=== PATIENT | female | born 1940 | race African-American/Black ===

== ENCOUNTER 2018-01-22 22:14 | Inpatient (IN) | payer OTHER ==
[2018-01-22 22:23] VITALS: BMI 31.6
[2018-01-22] MEDS ORDERED: ALBUTEROL SO4 2.5/IPRATROPIUM 0.5 INH SOL 3 ML VIAL.NEB. NEB STA ×2 (23:19→23:43)
--- NOTE | 2018-01-22 23:19 | PDOC ---
History of Present Illness - General History Source: Patient Exam Limitations: No Limitations - History of Present Illness Initial Comments: 01/22/18 23:46 The patient is a 77 year old female with a significant PMH of cardiac disorder, diabetes, HTN, and seizures who presents to the emergency department with shortness of breath over the past few weeks which worsened approximately 4 days ago and cough. The patient reports she has had intermittent shortness of breath for several weeks which became worse and more frequent since Sunday. She reports waking up today very uncomfortable due to her shortness of breath, with associated dry cough. The patient denies any sick contacts. She denies fevers and chills. The patient denies chest pain, headache and dizziness. Denies fever, chills, nausea, vomit, diarrhea and constipation. Denies dysuria, frequency, urgency and hematuria. Allergies: NKA Past surgical history: None reported. Social history: No reported cigarette, alcohol, or drug use. PCP: None reported. <Dejon Dunbar - Last Filed: 01/23/18 01:19> - General History Source: Patient <Bolivar Christensen - Last Filed: 01/29/18 19:29> - General Chief Complaint: Shortness of Breath Stated Complaint: CHEST PAIN Time Seen by Provider: 01/22/18 23:19 Past History <Dejon Dunbar - Last Filed: 01/23/18 01:19> - Past Medical History Cardiac Disorders: Yes COPD: No Diabetes: Yes HTN: Yes Seizures: Yes - Suicide/Smoking/Psychosocial Hx Smoking History: Never smoked Have you smoked in the past 12 months: No Information on smoking cessation initiated: No Hx Alcohol Use: No Drug/Substance Use Hx: No Substance Use Type: None <Bolivar Christensen - Last Filed: 01/29/18 19:29> - Past Medical History Allergies/Adverse Reactions: Allergies Allergy/AdvReac Type Severity Reaction Status Date / Time amlodipine [From [facility]] Allergy Severe Swelling Verified 01/23/18 00:19 Home Medications: Ambulatory Orders Cholecalciferol (Vitamin D3) [Vitamin D -] 200 unit PO DAILY 01/22/18 Albuterol 0.083% Nebulizer Meg [Ventolin 0.083% Nebulizer Soln -] 1 amp NEB Q1H PRN amp 01/26/18 Albuterol 2.5/Ipratropium 0.5 [Duoneb -] 1 amp NEB RQID amp 01/26/18 Chlorhexidine Gluconate [Hibiclens For Decolonization -] 1 applic TP HS bottle 01/26/18 Dexamethasone Injection [Decadron Injection -] 10 mg IVPUSH Q8H-IV vial Enoxaparin [Lovenox -] 40 mg SQ DAILY disp.syrin 01/26/18 Guaifenesin/Dextromethorphan [Guaifenesin Dm Syrup] 10 ml PO Q4H PRN cup Insulin Sliding Scale [Novolog Vial Sliding Scale -] 1 vial SQ ACHS units 01/26 Levothyroxine [Synthroid -] 50 mcg PO DAILY@0700 tablet 01/26/18 Mupirocin Ointment [Bactroban Ointment (For Decolonization) -] 1 applic NS BID applic 01/26/18 hydrALAZINE INJECTION [Apresoline Injection -] 10 mg IVPUSH Q6H PRN vial Review of Systems - Review of Systems Able to Perform ROS?: Yes Comments:: 01/22/18 23:46 CONSTITUTIONAL: Absent: fever, chills, diaphoresis, generalized weakness, malaise, loss of appetite HEENT: Absent: rhinorrhea, nasal congestion, throat pain, throat swelling, difficulty swallowing, mouth swelling, ear pain, eye pain, visual Changes CARDIOVASCULAR: Absent: chest pain, syncope, palpitations, irregular heart rate, lightheadedness , peripheral edema RESPIRATORY: (+) Shortness of breath. (+) Cough. Absent: dyspnea with exertion, orthopnea, wheezing, stridor, hemoptysis GASTROINTESTINAL: Absent: abdominal pain, abdominal distension, nausea, vomiting, diarrhea, constipation, melena, hematochezia GENITOURINARY: Absent: dysuria, frequency, urgency, hesitancy, hematuria, flank pain, genital pain MUSCULOSKELETAL: Absent: myalgia, arthralgia, joint swelling SKIN: Absent: rash, itching, pallor HEMATOLOGIC/IMMUNOLOGIC: Absent: easy bleeding, easy bruising, lymphadenopathy, frequent infections ENDOCRINE: Absent: unexplained weight gain, unexplained weight loss, heat intolerance, cold intolerance NEUROLOGIC: Absent: headache, focal weakness or paresthesias, dizziness, unsteady gait, seizure, mental status changes, bladder or bowel incontinence PSYCHIATRIC: Absent: anxiety, depression, suicidal or homicidal ideation, hallucinations. <Dejon Dunbar - Last Filed: 01/23/18 01:19> *Physical Exam - Vital Signs Last Vital Signs Temp Pulse Resp BP Pulse Ox 99.4 F 89 25 H 171/102 96 01/22/18 22:19 01/22/18 22:19 01/22/18 22:19 01/22/18 22:19 01/22/18 22:19 - Physical Exam Comments: 01/22/18 23:47 GENERAL: Well developed, well nourished. Awake and alert. No acute distress. HEENT: Normocephalic, atraumatic. PERRLA, EOMI. No conjunctival pallor. Sclera are non- icteric. Moist mucous membranes. Oropharynx is clear. NECK: Supple. Full ROM. No JVD. Carotid pulses 2+ and symmetric, without bruits. No thyromegaly. No lymphadenopathy. CARDIOVASCULAR: Regular rate and rhythm. No murmurs, rubs, or gallops. Distal pulses are 2+ and symmetric. PULMONARY: (+) Bilateral wheezing. (+) Conversational dyspnea. No rales or rhonchi. ABDOMINAL: Soft. Non-tender. Non-distended. No rebound or guarding. No organomegaly. Normoactive bowel sounds. MUSCULOSKELETAL Normal range of motion at all joints. No bony deformities or tenderness. No CVA tenderness. EXTREMITIES: No cyanosis. No clubbing. No edema. No calf tenderness. SKIN: Warm and dry. Normal capillary refill. No rashes. No jaundice. NEUROLOGICAL: Alert, awake, appropriate. Cranial nerves 2-12 intact. No deficits to light touch and temperature in face, upper extremities and lower extremities. No motor deficits in the in face, upper extremities and lower extremities. Normoreflexic in the upper and lower extremities. Normal speech. Toes are downgoing bilaterally. Gait is normal without ataxia. PSYCHIATRIC: Cooperative. Good eye contact. Appropriate mood and affect. <Dejon Dunbar - Last Filed: 01/23/18 01:19> - Vital Signs Last Vital Signs Temp Pulse Resp BP Pulse Ox 99.4 F 89 25 H 171/102 96 01/22/18 22:19 01/22/18 22:19 01/22/18 22:19 01/22/18 22:19 01/22/18 22:19 <Bolivar Christensen - Last Filed: 01/29/18 19:29> Heart Score/ECG Review #1 01/23/18 01:19 EKG done at 22:29 Vent rate 89 bpm Normal sinus rhythm Nonspecific T wave abnormality Abnormal ECG <Dejon Dunbar - Last Filed: 01/23/18 01:19> ED Treatment Course - LABORATORY CBC & Chemistry Diagram: 01/22/18 23:30 01/22/18 23:30 - ADDITIONAL ORDERS Additional order review: 01/22/18 23:30 RBC 4.28 MCV 85.5 MCHC 33.9 RDW 13.3 MPV 10.1 Neutrophils % 63.4 Lymphocytes % 24.7 Monocytes % 8.0 Eosinophils % 3.3 Basophils % 0.6 - Medications Given in the ED: ED Medications Discontinued Medications Generic Name Dose Route Start Last Admin Trade Name Freq PRN Reason Stop Dose Admin Albuterol/Ipratropium 1 amp 01/22/18 23:19 01/22/18 23:39 Duoneb - NEB 01/22/18 23:20 1 amp ONCE STA Administration <Dejon Dunbar - Last Filed: 01/23/18 01:19> - LABORATORY CBC & Chemistry Diagram: 01/26/18 05:16 01/26/18 05:16 <Bolivar Christensen - Last Filed: 01/29/18 19:29> Medical Decision Making - Medical Decision Making 01/29/18 19:28 Dr. Christensen: The scribe's documentation has been prepared under my direction and personally reviewed by me in its entirery. I confirm that the note above accurately reflects all work, treatment, procedures, and medical decision making performed by Dr. Christensen: The scribe's documentation has been prepared under my direction and personally reviewed by me in its entirery. I confirm that the note above accurately reflects all work, treatment, procedures , and medical decision making performed by me. <Bolivar Christensen - Last Filed: 01/29/18 19:29> *DC/Admit/Observation/Transfer - Attestations Scribe Attestion: 01/22/18 23:47 Documentation prepared by Dejon Dunbar, acting as registered medical transcriptionist for Bolivar Christensen DO. <Dejon Dunbar - Last Filed: 01/23/18 01:19> - Discharge Dispostion Admit: Yes <Bolivar Christensen - Last Filed: 01/29/18 19:29> Diagnosis at time of Disposition: Thyroid mass, SOB (shortness of breath) - Discharge Dispostion Condition at time of disposition: Improved
[2018-01-22] MEDS ORDERED: ALBUTEROL SO4 2.5/IPRATROPIUM 0.5 INH SOL 3 ML VIAL.NEB. NEB ONE (23:25)
[2018-01-22] MEDS ORDERED: MAGNESIUM SULF 50% (8.12 MEQ/2 ML-1 GM VIAL) IVPB ONE (23:40)
[2018-01-22] MEDS ORDERED: methylPREDNISolone NA SUCC 125 MG/2 ML VIAL IVPB ONE (23:40)
[2018-01-22 23:42] LABS: BASO % 0.6 % (0-2.0); EOS % 3.3 % (0-4.5); HEMATOCRIT 36.6 % (32.4-45.2); HEMOGLOBIN 12.4 GM/dL (10.7-15.3); LYMPH % 24.7 % (8-40); MCHC 33.9 g/dl (32.0-36.0); MEAN CELL VOLUME 85.5 fl (80-96); MEAN PLT VOLUME 10.1 fl (7.5-11.1); NEUT % 63.4 % (42.8-82.8); PLATELET COUNT 187 K/MM3 (134-434); RBC 4.28 M/mm3 (3.60-5.2); RDW 13.3 % (11.6-15.6); WHITE BLOOD COUNT 10.6 K/mm3 (4.0-10.0)
[2018-01-22 23:54] LABS: PROTHROMBIN TIME (PATIENT) 11.3 SEC (9.7-13.0)
[2018-01-23 00:08] LABS: ALBUMIN 4.1 g/dl (3.4-5.0); ANION GAP 9 (8-16); BILIRUBIN,TOTAL 0.4 mg/dL (0.2-1.0); BLOOD UREA NITROGEN 18 mg/dL (7-18); CALCIUM 9.5 mg/dL (8.5-10.1); CHLORIDE 102 mmol/L (98-107); CO2 34 mmol/L (21-32); CREATININE 0.9 mg/dL (0.55-1.02); GLUCOSE,RANDOM 129 mg/dL (74-106); SGOT/AST 16 U/L (15-37); SGPT/ALT 17 U/L (12-78); SODIUM 145 mmol/L (136-145); TOT PROT 8.3 g/dl (6.4-8.2)
[2018-01-23 00:11] LABS: ALK PHOS 96 U/L (45-117); N-TERMINAL BNP 171.78 pg/ml (5-450)
[2018-01-23 00:15] LABS: MAGNESIUM 2.2 mg/dL (1.8-2.4); PHOSPHOROUS 3.7 mg/dL (2.5-4.9)
[2018-01-23] MEDS ORDERED: MAGNESIUM SULF 50% (8.12 MEQ/2 ML-1 GM VIAL) ONE (00:22)
[2018-01-23] MEDS ORDERED: ALBUTEROL SO4 2.5/IPRATROPIUM 0.5 INH SOL 3 ML VIAL.NEB. NEB ONE (00:22)
[2018-01-23] MEDS ORDERED: methylPREDNISolone NA SUCC 125 MG/2 ML VIAL ONE (00:22)
[2018-01-23 01:34] LABS: URINE APPEARANCE SLCLOUDY; URINE BILIRUBIN NEGATIVE (<2.0 mg/dL); URINE COLOR LTYELLOW; URINE GLUCOSE (UA) NEGATIVE (NEGATIVE); URINE KETONE 1+ (NEGATIVE); URINE NITRITE NEGATIVE (NEGATIVE); URINE UROBILINOGEN NEGATIVE mg/dL (0.2-1.0)
[2018-01-23 01:35] LABS: URINE LEUK ESTERASE 1+ (NEGATIVE); URINE PROTEIN 2+ (NEGATIVE)
[2018-01-23 01:40] LABS: EPI CELLS FEW /HPF (FEW)
--- NOTE | 2018-01-23 02:52 | PN ---
Teaching Attending Note Name of Resident: Aida Davis ATTENDING PHYSICIAN STATEMENT I saw and evaluated the patient. I reviewed the resident's note and discussed the case with the resident. I agree with the resident's findings and plan as documented. SUBJECTIVE: 77 yo M with Pmhx. of CAD, DM, HTN, Seizures who presents with shortness of breath. States Shortness of Breath started a few days ago. Notes she has been short of breath on and off for several months, but has increased in frequency since Sunday. Also states that she has had a non-productive cough. Denies any fevers, chills, weight loss. Does have a family hx. of thyriod issues. No chest pain or pressure. No N, V,D. No headaches or dizziness. OBJECTIVE: Physical: VS: Vital Signs Period Temp Pulse Resp BP Sys/Eduardo Pulse Ox Last 24 Hr 99.4 F 89 25 171/102 96 GEN: NAD, Stridor when speaking, able to speak full sentences, HEENT: NCAT, PERRL, Throat without erythema or exudates CARD: RRR S1, S2 RESP: Bilateral Expiratory Wheezing ABD: BSx4, NTD to palpation, Keloid on abdomen EXT: - C/C/E Keloid on Back CBCD WBC 10.6 K/mm3 (4.0-10.0) H 01/22/18 23:30 RBC 4.28 M/mm3 (3.60-5.2) 01/22/18 23:30 Hgb 12.4 GM/dL (10.7-15.3) 01/22/18 23:30 Hct 36.6 % (32.4-45.2) 01/22/18 23:30 MCV 85.5 fl (80-96) 01/22/18 23:30 MCHC 33.9 g/dl (32.0-36.0) 01/22/18 23:30 RDW 13.3 % (11.6-15.6) 01/22/18 23:30 Plt Count 187 K/MM3 (134-434) 01/22/18 23:30 MPV 10.1 fl (7.5-11.1) 01/22/18 23:30 CMP Sodium 145 mmol/L (136-145) 01/22/18 23:30 Potassium 4.0 mmol/L (3.5-5.1) 01/22/18 23:30 Chloride 102 mmol/L (98-107) 01/22/18 23:30 Carbon Dioxide 34 mmol/L (21-32) H 01/22/18 23:30 Anion Gap 9 (8-16) 01/22/18 23:30 BUN 18 mg/dL (7-18) 01/22/18 23:30 Creatinine 0.9 mg/dL (0.55-1.02) 01/22/18 23:30 Creat Clearance w eGFR > 60 (>60) 01/22/18 23:30 Random Glucose 129 mg/dL (74-106) H 01/22/18 23:30 Calcium 9.5 mg/dL (8.5-10.1) 01/22/18 23:30 Total Bilirubin 0.4 mg/dL (0.2-1.0) 01/22/18 23:30 AST 16 U/L (15-37) 01/22/18 23:30 ALT 17 U/L (12-78) 01/22/18 23:30 Alkaline Phosphatase 96 U/L (45-117) 01/22/18 23:30 Total Protein 8.3 g/dl (6.4-8.2) H 01/22/18 23:30 Albumin 4.1 g/dl (3.4-5.0) 01/22/18 23:30 CARDIAC ENZYMES Creatine Kinase 150 IU/L (26-192) 01/22/18 23:30 Troponin I < 0.02 ng/ml (0.00-0.05) 01/22/18 23:30 Vent rate 89 bpm Normal sinus rhythm Nonspecific T wave abnormality Abnormal ECG Ambulatory Orders Aspirin [Aspirin EC] 81 mg PO DAILY 01/22/18 Atenolol [Tenormin -] 100 mg PO DAILY 01/22/18 Cholecalciferol (Vitamin D3) [Vitamin D3 -] 200 unit PO DAILY 01/22/18 Hydrochlorothiazide [Hctz -] 25 mg PO DAILY 01/22/18 Levothyroxine [Synthroid -] 50 mcg PO DAILY 01/22/18 CT Chest: Right Substernal Goiter, 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 of CAD, DM, HTN, Keloids, Seizures who presents with shortness of breath, found to have a goiter 1.) Shortness of breath due to Substernal Goiter/Displaced Trachea - TSH, T3/T4 - Thyriod US - Flow-Volume - - ENT/Pulm. consult - Type & Screen - Coags - Endocrine consult 2.) ? Asthma/COPD - Remote Smoking hx - Duonebs prn - Mag 3.) Hypothyriodism - Chk. TSH - C/W Synthriod 4.) HTN - C/W HcTz 5.) CAD - C/W Home meds 6.) DM - FS - RAISS 7.) Seizure Hx. - Pt. Denies 8.) Dvt Ppx - Scds Place in Tele
--- NOTE | 2018-01-23 03:10 | HP ---
CHIEF COMPLAINT: sob PCP: HISTORY OF PRESENT ILLNESS: This is a 77 year old female with a history of HTN, hypothyroid, known thyroid mass, who presents today with worsening shortness of breath. C/o upper respiratory symptoms, non productive cough, nasal congestion that started this weekend. Denies fever, chills, hemoptysis, dysphagia, sick contacts. Patient states that she has been diagnosed with thyroid mass that has been related to her shortness of breath in the past. She was planned for imaging of thyroid this week. CHEST CT W CONTRAST: goiter right sided, 7.7x6.6 cm which significantly displaces and narrows the trachea to the left. Recent Travel: none PAST MEDICAL HISTORY: Hypothyroid, goiter, htn, keloids PAST SURGICAL HISTORY: hysterectomy Social History: Smoking:none Alcohol:none Drugs: nine Family History: daughter and aunt s/p thyroid removal Allergies amlodipine [From [facility]] Allergy (Severe, Verified 01/23/18 00:19) Swelling HOME MEDICATIONS: Home Medications Medication Instructions Recorded Aspirin [Aspirin EC] 81 mg PO DAILY 01/22/18 Atenolol [Tenormin -] 100 mg PO DAILY 01/22/18 Cholecalciferol (Vitamin D3) 200 unit PO DAILY 01/22/18 [Vitamin D3 -] Hydrochlorothiazide [Hctz -] 25 mg PO DAILY 01/22/18 Levothyroxine [Synthroid -] 50 mcg PO DAILY 01/22/18 REVIEW OF SYSTEMS CONSTITUTIONAL: Absent: fever, chills, diaphoresis, generalized weakness, malaise, loss of appetite, weight change HEENT: Absent: rhinorrhea, nasal congestion, throat pain, throat swelling, difficulty swallowing, mouth swelling, ear pain, eye pain, visual changes CARDIOVASCULAR: Absent: chest pain, syncope, palpitations, irregular heart rate, lightheadedness , peripheral edema RESPIRATORY: Positive: cough, shortness of breath, dyspnea with exertion,wheezing, Absent: orthopnea, stridor, hemoptysis GASTROINTESTINAL: Absent: abdominal pain, abdominal distension, nausea, vomiting, diarrhea, constipation, melena, hematochezia GENITOURINARY: Absent: dysuria, frequency, urgency, hesitancy, hematuria, flank pain, genital pain MUSCULOSKELETAL: Absent: myalgia, arthralgia, joint swelling, back pain, neck pain SKIN: Positive: keloids Absent: rash, itching, pallor HEMATOLOGIC/IMMUNOLOGIC: Absent: easy bleeding, easy bruising, lymphadenopathy, frequent infections ENDOCRINE: Absent: unexplained weight gain, unexplained weight loss, heat intolerance, cold intolerance NEUROLOGIC: Absent: headache, focal weakness or paresthesias, dizziness, unsteady gait, seizure, mental status changes, bladder or bowel incontinence PSYCHIATRIC: Absent: anxiety, depression, suicidal or homicidal ideation, hallucinations. PHYSICAL EXAMINATION Vital Signs - 24 hr 01/22/18 22:19 Temperature 99.4 F Pulse Rate 89 Respiratory 25 H Rate Blood Pressure 171/102 O2 Sat by Pulse 96 Oximetry (%) GENERAL: Awake, alert, and fully oriented, horse voice; gurgly HEAD: Normal with no signs of trauma. EYES: Pupils equal, round and reactive to light, extraocular movements intact, sclera anicteric, conjunctiva clear. No lid lag. EARS, NOSE, THROAT: Ears normal, nares patent, oropharynx clear without exudates. Moist mucous membranes. NECK: Normal range of motion, supple without lymphadenopathy, JVD, Large right sided mass LUNGS: course breath sounds; wheezing HEART: Regular rate and rhythm, normal S1 and S2 without murmur, rub or gallop. ABDOMEN: Soft, nontender, not distended, normoactive bowel sounds, no guarding, no rebound, no masses. No hepatomegaly or splenomegaly. keloids MUSCULOSKELETAL: Normal range of motion at all joints. No bony deformities or tenderness. No CVA tenderness. UPPER EXTREMITIES: 2+ pulses, warm, well-perfused. No cyanosis. No clubbing. No peripheral edema. LOWER EXTREMITIES: 2+ pulses, warm, well-perfused. No calf tenderness. No peripheral edema. NEUROLOGICAL: Cranial nerves II-XII intact. Normal speech. PSYCHIATRIC: Cooperative. Good eye contact. Appropriate mood and affect. SKIN: multiple area of keloids Laboratory Results - last 24 hr 01/22/18 01/22/18 01/22/18 23:30 23:30 23:30 WBC 10.6 H RBC 4.28 Hgb 12.4 Hct 36.6 MCV 85.5 MCH 29.0 MCHC 33.9 RDW 13.3 Plt Count 187 MPV 10.1 Neutrophils % 63.4 Lymphocytes % 24.7 Monocytes % 8.0 Eosinophils % 3.3 Basophils % 0.6 PT with INR 11.30 INR 1.00 Sodium 145 Potassium 4.0 Chloride 102 Carbon Dioxide 34 H Anion Gap 9 BUN 18 Creatinine 0.9 Creat Clearance w eGFR > 60 Random Glucose 129 H Calcium 9.5 Phosphorus Magnesium Total Bilirubin 0.4 AST 16 ALT 17 Alkaline Phosphatase 96 Creatine Kinase 150 Creatine Kinase Index 0.9 CK-MB (CK-2) 1.417 Troponin I < 0.02 B-Natriuretic Peptide 171.78 Total Protein 8.3 H Albumin 4.1 Urine Color Urine Appearance Urine pH Ur Specific [place] Urine Protein Urine Glucose (UA) Urine Ketones Urine Blood Urine Nitrite Urine Bilirubin Urine Urobilinogen Ur Leukocyte Esterase Urine WBC (Auto) Urine RBC (Auto) Ur Epithelial Cells 01/22/18 01/23/18 23:30 01:20 WBC RBC Hgb Hct MCV MCH MCHC RDW Plt Count MPV Neutrophils % Lymphocytes % Monocytes % Eosinophils % Basophils % PT with INR INR Sodium Potassium Chloride Carbon Dioxide Anion Gap BUN Creatinine Creat Clearance w eGFR Random Glucose Calcium Phosphorus 3.7 Magnesium 2.2 Total Bilirubin AST ALT Alkaline Phosphatase Creatine Kinase Creatine Kinase Index CK-MB (CK-2) Troponin I B-Natriuretic Peptide Total Protein Albumin Urine Color Ltyellow Urine Appearance Slcloudy Urine pH 5.0 Ur Specific [place] 1.045 H Urine Protein 2+ H Urine Glucose (UA) Negative Urine Ketones 1+ H Urine Blood 1+ H Urine Nitrite Negative Urine Bilirubin Negative Urine Urobilinogen Negative Ur Leukocyte Esterase 1+ H Urine WBC (Auto) 25 Urine RBC (Auto) 28 Ur Epithelial Cells Few ASSESSMENT/PLAN: This is a 77 year old female with a PMH of goiter, hypothyroid, htn, who presents for worsening shortness of breath after a viral illness. CT imaging sowing larger right sided goiter on thyroid that is narrowing trachea. #shortness of breath secondary to large goiter -no signs of bacterial infection look to be more of obstructive process from mass; superimposed with viral URI; -PE + for wheezing/course breath sounds; no hx of smoking/; r/o COPD? asthma? -cont duonebs/IV steroids -cardiac tele, monitor for airway compromise, O2 -tsh, t3, t4 -thyroid US -pulm consult -endocrine consult -ent consult for sx #htn: -cont atenolol, hctz #hypothyroid: -cont levothyroxine -tsh, t3, t4 vte ppl: lovenox Disposition: inpt med surg Visit type - Emergency Visit Emergency Visit: Yes Care time: The patient presented to the Emergency Department on the above date and was hospitalized for further evaluation of their emergent condition. - New Patient This patient is new to me today: Yes Date on this admission: 01/23/18 - Critical Care Critical Care patient: No Hospitalist Screening - Colonoscopy Questionnaire Colonoscopy Questionnaire: Colonoscopy Questionnaire - Patient: 50 - 75 years old and never had a screening colonoscopy: Unknown History of colon or rectal polyps, or CA: Unknown History of IBD, Crohn's disease or UC: Unknown History of abdominal radiation therapy as a child: Unknown - Relative: 1 with colon or rectal CA, or polyps at age 60 or younger: Unknown Colon or rectal CA diagnosed at age 45 or younger: Unknown Multiple relatives with colon or rectal CA: Unknown - Outcome: Screening Result: Negative Screen
[2018-01-23] MEDS ORDERED: ALBUTEROL SO4 0.083% IH SOL 2.5 MG/3 ML VIAL.NEB. NEB PRN (03:22)
[2018-01-23 06:03] LABS: BASO % 0.4 % (0-2.0); HEMOGLOBIN 12.6 GM/dL (10.7-15.3); LYMPH % 9.5 % (8-40); MCH 29.1 pg (25.7-33.7); MCHC 34.1 g/dl (32.0-36.0); MEAN CELL VOLUME 85.2 fl (80-96); MEAN PLT VOLUME 9.5 fl (7.5-11.1); MONO % 1.3 % (3.8-10.2); NEUT % 88.8 % (42.8-82.8); PLATELET COUNT 180 K/MM3 (134-434); RBC 4.34 M/mm3 (3.60-5.2); RDW 13.2 % (11.6-15.6); WHITE BLOOD COUNT 9.3 K/mm3 (4.0-10.0)
[2018-01-23 06:24] LABS: ANION GAP 3 (8-16); BLOOD UREA NITROGEN 13 mg/dL (7-18); CALCIUM 9.1 mg/dL (8.5-10.1); CHLORIDE 104 mmol/L (98-107); CO2 33 mmol/L (21-32); CREATININE 0.8 mg/dL (0.55-1.02); GLUCOSE,RANDOM 189 mg/dL (74-106); MAGNESIUM 2.7 mg/dL (1.8-2.4); PHOSPHOROUS 3.9 mg/dL (2.5-4.9); POTASSIUM 3.8 mmol/L (3.5-5.1); SODIUM 140 mmol/L (136-145)
--- NOTE | 2018-01-23 07:46 | PN ---
Physical Exam: SUBJECTIVE: Patient seen and examined - BP elevated to 170s systolic this AM; TSH 0.12 on labs; Pt states breathing improved since admission; endorses productive cough that began "last "; similarly endorsing a sensation of increased resistant to air entry, dyspnea; no other complaints, denies f/c/n/v/d, KOENIG, CP, ab pain, back pain, LE edema OBJECTIVE: Vital Signs Intake & Output 01/20/18 01/21/18 01/22/18 01/23/18 23:59 23:59 23:59 23:59 Weight 83.461 kg Period Temp Pulse Resp BP Sys/Eduardo Pulse Ox Last 24 Hr 99.4 F 62-89 18-25 171-176/77-102 96-100 GENERAL: Middle aged woman, in NAD HEAD: NCAT EYES: PERRL, extraocular movements intact, sclera anicteric, conjunctiva clear. No ptosis. ENT: Ears normal, nares patent, oropharynx clear without exudates, moist mucous membranes. NECK: I/E stridor noted on exam. Large palpable thyroid mass notable on R neck. Tracheal deviation to L LUNGS: Decreased air entry at bases. no wheezes, no crackles, no accessory muscle use. stridor noted in upper airways. HEART: Regular rate and rhythm, S1, S2 without murmur, rub or gallop. ABDOMEN: Globular. Soft, nontender, nondistended, normoactive bowel sounds, no guarding, no rebound, no hepatosplenomegaly, no masses. No CVA tenderness. EXTREMITIES: 2+ pulses, warm, well-perfused, no edema. NEUROLOGICAL: Cranial nerves II through XII grossly intact. Normal speech, gait not observed. PSYCH: Normal mood, normal affect. Pleasant, interactive SKIN: Warm, dry, normal turgor, no rashes or lesions noted Laboratory Results - last 24 hr CBC, BMP 01/23/18 05:50 01/23/18 05:50 01/22/18 01/22/18 01/22/18 23:30 23:30 23:30 WBC 10.6 H RBC 4.28 Hgb 12.4 Hct 36.6 MCV 85.5 MCH 29.0 MCHC 33.9 RDW 13.3 Plt Count 187 MPV 10.1 Neutrophils % 63.4 Lymphocytes % 24.7 Monocytes % 8.0 Eosinophils % 3.3 Basophils % 0.6 PT with INR 11.30 INR 1.00 Sodium 145 Potassium 4.0 Chloride 102 Carbon Dioxide 34 H Anion Gap 9 BUN 18 Creatinine 0.9 Creat Clearance w eGFR > 60 Random Glucose 129 H Calcium 9.5 Phosphorus Magnesium Total Bilirubin 0.4 AST 16 ALT 17 Alkaline Phosphatase 96 Creatine Kinase 150 Creatine Kinase Index 0.9 CK-MB (CK-2) 1.417 Troponin I < 0.02 B-Natriuretic Peptide 171.78 Total Protein 8.3 H Albumin 4.1 TSH Urine Color Urine Appearance Urine pH Ur Specific [place] Urine Protein Urine Glucose (UA) Urine Ketones Urine Blood Urine Nitrite Urine Bilirubin Urine Urobilinogen Ur Leukocyte Esterase Urine WBC (Auto) Urine RBC (Auto) Ur Epithelial Cells 01/22/18 01/23/18 01/23/18 23:30 01:20 05:50 WBC RBC Hgb Hct MCV MCH MCHC RDW Plt Count MPV Neutrophils % Lymphocytes % Monocytes % Eosinophils % Basophils % PT with INR INR Sodium 140 Potassium 3.8 Chloride 104 Carbon Dioxide 33 H Anion Gap 3 L BUN 13 Creatinine 0.8 Creat Clearance w eGFR Random Glucose 189 H Calcium 9.1 Phosphorus 3.7 3.9 Magnesium 2.2 2.7 H Total Bilirubin AST ALT Alkaline Phosphatase Creatine Kinase Creatine Kinase Index CK-MB (CK-2) Troponin I B-Natriuretic Peptide Total Protein Albumin TSH 0.12 L Urine Color Ltyellow Urine Appearance Slcloudy Urine pH 5.0 Ur Specific [place] 1.045 H Urine Protein 2+ H Urine Glucose (UA) Negative Urine Ketones 1+ H Urine Blood 1+ H Urine Nitrite Negative Urine Bilirubin Negative Urine Urobilinogen Negative Ur Leukocyte Esterase 1+ H Urine WBC (Auto) 25 Urine RBC (Auto) 28 Ur Epithelial Cells Few 01/23/18 05:50 WBC 9.3 RBC 4.34 Hgb 12.6 Hct 37.0 MCV 85.2 MCH 29.1 MCHC 34.1 RDW 13.2 Plt Count 180 MPV 9.5 Neutrophils % 88.8 H D Lymphocytes % 9.5 D Monocytes % 1.3 L D Eosinophils % 0.0 D Basophils % 0.4 PT with INR INR Sodium Potassium Chloride Carbon Dioxide Anion Gap BUN Creatinine Creat Clearance w eGFR Random Glucose Calcium Phosphorus Magnesium Total Bilirubin AST ALT Alkaline Phosphatase Creatine Kinase Creatine Kinase Index CK-MB (CK-2) Troponin I B-Natriuretic Peptide Total Protein Albumin TSH Urine Color Urine Appearance Urine pH Ur Specific [place] Urine Protein Urine Glucose (UA) Urine Ketones Urine Blood Urine Nitrite Urine Bilirubin Urine Urobilinogen Ur Leukocyte Esterase Urine WBC (Auto) Urine RBC (Auto) Ur Epithelial Cells Active Medications Generic Name Dose Route Start Last Admin Trade Name Freq PRN Reason Stop Dose Admin Albuterol Sulfate 1 amp 01/23/18 03:22 Ventolin 0.083% Nebulizer Soln - NEB Q1H PRN SHORT OF BREATH/WHEEZING Albuterol/Ipratropium 1 amp 01/23/18 08:00 Duoneb - NEB RQID KYLIE Enoxaparin Sodium 40 mg 01/23/18 10:00 Lovenox - SQ DAILY KYLIE Methylprednisolone Sodium Succinate 40 mg 01/23/18 10:00 Solu-Medrol - IVPUSH DAILY KYLIE No micro CXR 01/22 - Right paratracheal soft tissue mass, unchanged since prior chest x- ray the 03/17/2014 that may represent an enlarged retrosternal right thyroid lobe for which correlation with CT scan of the chest or thyroid ultrasound is needed. CHEST CT W CONTRAST 01/23: goiter right sided, 7.7x6.6 cm which significantly displaces and narrows the trachea to the left. ASSESSMENT/PLAN: 77 year old female with a PMH of goiter, hypothyroid, htn, who presents for worsening shortness of breath after a viral illness. CT chest notable for large suspected thyroid mass with extrinsic compression of trachea. #Stridor/respiratory distress secondary to suspected thyromegaly - CT confirmed - Decladariusron - shannan qidr - robitussin dm - transfer to ICU -pulm following - ENT consulted; plan for surgery with Dr. Bustos on Sunday, 01/25 -f/u t3/t4; TSH 0.12 - hold synthroid - Endo consulted - Dr. Mancera - O2 support, close monitoring for respiratory compromise; limit all agitation/ manipulation of trachea or thyroid mass given minimal tracheal reserve - Unlikely to tolerate intubation or cricothyroidotomy if unable to maintain airway; Alert anesthesia team emergently if evidence of respiratory failure #HTN -Hold atenolol given bronchospastic component; hold HCTZ as pt on IVFs - hydralazine IV 10mg q6h prn #hypothyroid: -cont levothyroxine -tsh, t3, t4 PPX Lovenox FEN NS 42cc/hr Daily lytes NPO for now ICU Plan discussed with Dr. Wesley Silverman, PGY1 Visit type - Emergency Visit Emergency Visit: Yes ED Registration Date: 01/23/18 Care time: The patient presented to the Emergency Department on the above date and was hospitalized for further evaluation of their emergent condition. - New Patient This patient is new to me today: Yes Date on this admission: 01/23/18 - Critical Care Critical Care patient: Yes Total Critical Care Time (in minutes): 35 Critical Care Statement: The care of this patient involved high complexity decision making to prevent further life threatening deterioration of the patient 's condition and/or to evaluate & treat vital organ system(s) failure or risk of failure. - Discharge Referral Referred to [facility] No
[2018-01-23] MEDS ORDERED: DEXAMETHASONE SOD PHOSPHATE 4 MG/1 ML VIAL IVPUSH SCH (09:30)
[2018-01-23] MEDS ORDERED: methylPREDNISolone NA SUCC 40 MG/1 ML VIAL IVPUSH SCH (10:00)
[2018-01-23] MEDS ORDERED: guaiFENesin/D-METHORPHAN HB 10 ML UNIT-DOSE CUPS PO PRN (10:19)
--- NOTE | 2018-01-23 10:44 | CON.ENT ---
Consult Consult Specialty:: ENT Reason for Consultation:: shortness of breath, goiter - History of Present Illness Chief Complaint: shortness of breath History of Present Illness: 77 yo F with hx HTN, DM, heart disease and seizure disorder felt well until 1 week ago, felt short of breath, saw her PMD 2 days ago, (New PMD @ [facility] [address] pt and 2 daughters do not know the MD's name) states dx bronchitis, some phlegm, slightly yellow, not green, no blood had flu vaccine and pneumovax? this season, no flu or significant URI over winter denies prior cardiac or pulmonary history known thyroid problem x 25-30 years, has been on Synthoid, followed by PMD, no endocrinology involvement per pt. had thyroid ultrasound at [facility] ~25 yrs ago, no biopsy, no thyroid ultrasound since per daughters pt has had mild voice change no dysphagia, no choking, coughing or other signs of aspiration PSH appendectomy 1975, hysterectomy 1986 hospitalized for reaction to Norvasc ([facility], records not available) had significant swelling (suspect angioedema by hx) - History Source History Provided By: Patient, Family Member, Medical Record - Past Surgical History Past Surgical History: Yes: Appendectomy, Hysterectomy - Alcohol/Substance Use Hx Alcohol Use: No - Smoking History Smoking history: Never smoked Have you smoked in the past 12 months: No Home Medications - Allergies Allergies/Adverse Reactions: Allergies Allergy/AdvReac Type Severity Reaction Status Date / Time amlodipine [From Norvasc] Allergy Severe Swelling Verified 01/23/18 00:19 - Home Medications Home Medications: Ambulatory Orders Aspirin [Aspirin EC] 81 mg PO DAILY 01/22/18 Atenolol [Tenormin -] 100 mg PO DAILY 01/22/18 Cholecalciferol (Vitamin D3) [Vitamin D3 -] 200 unit PO DAILY 01/22/18 Hydrochlorothiazide [Hctz -] 25 mg PO DAILY 01/22/18 Levothyroxine [Synthroid -] 50 mcg PO DAILY 01/22/18 Family Disease History - Family Disease History Family Disease History: Other: Daughter (2 alive and well) Review of Systems - Review of Systems Constitutional: reports: Other (no weight loss or gain) Respiratory: reports: SOB Gastrointestinal: reports: No Symptoms Physical Exam-ENT Vital Signs: Vital Signs Temperature 99.4 F 01/22/18 22:19 Pulse Rate 59 L 01/23/18 07:10 Respiratory Rate 18 01/23/18 07:10 Blood Pressure 165/75 01/23/18 07:10 O2 Sat by Pulse Oximetry (%) 100 01/23/18 07:10 Constitutional: Yes: Well Nourished, No Distress, Calm Head: Yes: WNL Face: Yes: WNL Eyes: Yes: WNL Nose: Yes: Other (nasal cannulae, no bleeding, nasal breathing) Oral/Pharynx: Yes: Other (dentures, no visible lesions, tongue normal (position 3), floor of mouth normal, oropharynx clear, voice clear and strong, no stridor or respiratory distress) Outer Ear: Yes: WNL Extremities: Yes: WNL Neurological: Yes: WNL Psychiatric: Yes: WNL, Alert, Oriented Imaging - Results Chest X-ray: Report Reviewed, Image Reviewed Cat Scan: Report Reviewed, Image Reviewed (CT chest ++large substernal goiter right posterior, which abuts pulmonary vessels and right mainstem bronchus inferioly, and vertebral bodies posteriorly , +significant tracheal deviation and extrinsic compression to left.) Problem List - Problems (1) Thyroid mass Assessment/Plan: long history of thyroid disease, on Synthoid x 25-30 yrs last thyroid ultrasound ~25 yrs ago @ [facility], no biopsy no endocrinology monitoring over the years 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 Recommend: admit, monitor respiratory status, medical management to stabilize patient ultimately pt should have thyroidectomy with removal of the large substernal goiter suggest this be performed at a tertiary medical center. Thank you for consultation, Bulmaro Fuentes MD FACS Code(s): E07.9 - DISORDER OF THYROID, UNSPECIFIED
[2018-01-23] MEDS ORDERED: guaiFENesin/D-METHORPHAN HB 5 ML UNIT-DOSE CUPS PO PRN (10:57)
[2018-01-23] MEDS ORDERED: guaiFENesin 200 MG/10 ML 10 ML UNIT-DOSE CUPS ONE (11:44)
--- NOTE | 2018-01-23 12:06 | EKG ---
Test Reason : Blood Pressure : / mmHG Vent. Rate : 089 BPM Atrial Rate : 089 BPM P-R Int : 184 ms QRS Dur : 084 ms QT Int : 380 ms P-R-T Axes : 051 003 061 degrees QTc Int : 462 ms NORMAL SINUS RHYTHM NONSPECIFIC T WAVE ABNORMALITY ABNORMAL ECG NO PREVIOUS ECGS AVAILABLE Confirmed by EBER JARRELL MD ([id number]) on 01/23/2018 12:05:36 PM Referred By: Confirmed By:EBER JARRELL MD
[2018-01-23] MEDS: ENOXAPARIN NA (PORCINE) 40 MG/0.4 ML DISP.SYRIN SQ SCH (12:12)
--- NOTE | 2018-01-23 13:31 | PN ---
Teaching Attending Note Name of Resident: Homar Silverman ATTENDING PHYSICIAN STATEMENT I saw and evaluated the patient. I reviewed the resident's note and discussed the case with the resident. I agree with the resident's findings and plan as documented with exceptions below. SUBJECTIVE: Patient seen and examined, breathing improved, able to talk better, still with cough. OBJECTIVE: Vital Signs Period Temp Pulse Resp BP Sys/Eduardo Pulse Ox Last 24 Hr 99.4 F 59-89 18-25 165-176/75-102 96-100 Intake & Output 01/20/18 01/21/18 01/22/18 01/23/18 23:59 23:59 23:59 23:59 Weight 184 lb General: sitting in bed, audible stridor Chest: positive stridor, no wheezing otherwise, positive air entry bilaterally Neck: swelling in right submandibular region/neck, further exam deferred. Home Medication List Medication Instructions Recorded Confirmed Type Aspirin [Aspirin EC] 81 mg PO DAILY 01/22/18 01/22/18 History Atenolol [Tenormin -] 100 mg PO DAILY 01/22/18 01/22/18 History Cholecalciferol (Vitamin D3) 200 unit PO DAILY 01/22/18 01/22/18 History [Vitamin D3 -] Hydrochlorothiazide [Hctz -] 25 mg PO DAILY 01/22/18 01/22/18 History Levothyroxine [Synthroid -] 50 mcg PO DAILY 01/22/18 01/22/18 History Active Medications Generic Name Dose Route Start Last Admin Trade Name Freq PRN Reason Stop Dose Admin Albuterol Sulfate 1 amp 01/23/18 03:22 Ventolin 0.083% Nebulizer Soln - NEB Q1H PRN SHORT OF BREATH/WHEEZING Albuterol/Ipratropium 1 amp 01/23/18 08:00 Duoneb - NEB RQID KYLIE Chlorhexidine Gluconate 1 applic 01/23/18 22:00 Hibiclens For Decolonization - TP HS KYLIE Dexamethasone Sodium Phosphate 10 mg 01/23/18 18:00 Decadron Injection - IVPUSH Q8H-IV KYLIE Enoxaparin Sodium 40 mg 01/23/18 10:00 01/23/18 12:12 Lovenox - SQ 40 mg DAILY KYLIE Administration Guaifenesin 10 ml 01/23/18 10:57 01/23/18 11:50 Guaifenesin Dm Syrup PO 10 ml Q4H PRN Administration COUGH Sodium Chloride 1,000 mls @ 42 mls/hr 01/23/18 13:30 Normal Saline - IV ASDIR [facility] Insulin Aspart 1 vial 01/23/18 13:30 Novolog Vial Sliding Scale - SQ Q6H [facility] Protocol Mupirocin 1 applic 01/23/18 22:00 Bactroban Ointment (For Decolonization) - NS 01/28/18 21:59 BID [facility] Laboratory Results - last 24 hr 01/22/18 01/22/18 01/22/18 23:30 23:30 23:30 WBC 10.6 H RBC 4.28 Hgb 12.4 Hct 36.6 MCV 85.5 MCH 29.0 MCHC 33.9 RDW 13.3 Plt Count 187 MPV 10.1 Neutrophils % 63.4 Lymphocytes % 24.7 Monocytes % 8.0 Eosinophils % 3.3 Basophils % 0.6 PT with INR 11.30 INR 1.00 Sodium 145 Potassium 4.0 Chloride 102 Carbon Dioxide 34 H Anion Gap 9 BUN 18 Creatinine 0.9 Creat Clearance w eGFR > 60 Random Glucose 129 H Calcium 9.5 Phosphorus Magnesium Total Bilirubin 0.4 AST 16 ALT 17 Alkaline Phosphatase 96 Creatine Kinase 150 Creatine Kinase Index 0.9 CK-MB (CK-2) 1.417 Troponin I < 0.02 B-Natriuretic Peptide 171.78 Total Protein 8.3 H Albumin 4.1 TSH Urine Color Urine Appearance Urine pH Ur Specific [place] Urine Protein Urine Glucose (UA) Urine Ketones Urine Blood Urine Nitrite Urine Bilirubin Urine Urobilinogen Ur Leukocyte Esterase Urine WBC (Auto) Urine RBC (Auto) Ur Epithelial Cells 01/22/18 01/23/18 01/23/18 23:30 01:20 05:50 WBC RBC Hgb Hct MCV MCH MCHC RDW Plt Count MPV Neutrophils % Lymphocytes % Monocytes % Eosinophils % Basophils % PT with INR INR Sodium 140 Potassium 3.8 Chloride 104 Carbon Dioxide 33 H Anion Gap 3 L BUN 13 Creatinine 0.8 Creat Clearance w eGFR Random Glucose 189 H Calcium 9.1 Phosphorus 3.7 3.9 Magnesium 2.2 2.7 H Total Bilirubin AST ALT Alkaline Phosphatase Creatine Kinase Creatine Kinase Index CK-MB (CK-2) Troponin I B-Natriuretic Peptide Total Protein Albumin TSH 0.12 L Urine Color Ltyellow Urine Appearance Slcloudy Urine pH 5.0 Ur Specific [place] 1.045 H Urine Protein 2+ H Urine Glucose (UA) Negative Urine Ketones 1+ H Urine Blood 1+ H Urine Nitrite Negative Urine Bilirubin Negative Urine Urobilinogen Negative Ur Leukocyte Esterase 1+ H Urine WBC (Auto) 25 Urine RBC (Auto) 28 Ur Epithelial Cells Few 01/23/18 05:50 WBC 9.3 RBC 4.34 Hgb 12.6 Hct 37.0 MCV 85.2 MCH 29.1 MCHC 34.1 RDW 13.2 Plt Count 180 MPV 9.5 Neutrophils % 88.8 H D Lymphocytes % 9.5 D Monocytes % 1.3 L D Eosinophils % 0.0 D Basophils % 0.4 PT with INR INR Sodium Potassium Chloride Carbon Dioxide Anion Gap BUN Creatinine Creat Clearance w eGFR Random Glucose Calcium Phosphorus Magnesium Total Bilirubin AST ALT Alkaline Phosphatase Creatine Kinase Creatine Kinase Index CK-MB (CK-2) Troponin I B-Natriuretic Peptide Total Protein Albumin TSH Urine Color Urine Appearance Urine pH Ur Specific [place] Urine Protein Urine Glucose (UA) Urine Ketones Urine Blood Urine Nitrite Urine Bilirubin Urine Urobilinogen Ur Leukocyte Esterase Urine WBC (Auto) Urine RBC (Auto) Ur Epithelial Cells CT chest results reviewed. ASSESSMENT AND PLAN: 77 yof with PMHx of HTN, hypothyroidism, known thyroid masses, admitted with shortness of breath, markedly enlarged right thyroid gland with extrinsic tracheal compression and impending respiratory failure. -Shortness of breath/Impending respiratory failure from substernal goiter with extrinsic tracheal compression likely decompensated by URI like illness vs acute bronchospastic disease -Hypothyroidism -HTN Plan: Discussed with Dr. Mayfield, plan to transfer to ICU for closer monitoring and surgical intervention by Dr. Bustos on Sunday. Continue decadron, nebs, close monitoring of respiratory status. NPO for now. HOld atenolol given concern for bronchospastic component, hold HCTZ while on gentle hydration given NPO. Add Hydralazine prn if persistently hypertensive. TSH noted, follow up free T4 and total T3. Follow up Endocrine input. Lovenox for DVTPPX dispo pending clinical improvement and surgical intervention. Plan discussed with patient and family at bedside in detail, all questions answered.
--- NOTE | 2018-01-23 13:39 | PN ---
Teaching Attending Note Name of Resident: Wiley Weber ATTENDING PHYSICIAN STATEMENT I saw and evaluated the patient. I reviewed the resident's note and discussed the case with the resident. I agree with the resident's findings and plan as documented. SUBJECTIVE: Pt seen and examined in the ER. Briefly, 77yo female with h/o HTN, DM, nonobstructive CAD, seizure disorder, known goiter who presents with worsening shortness of breath and voice change x 5 days. Reports a nonproductive cough, wheezing. No chest pain or palpitations. No fevers, chills or sweats. Was told of a goiter "years ago" but states it was controlled with medications. Reports chronic dyspnea also for "years." Found to have a large goiter with tracheal compression on CXR and CT chest. Given IV steroids, antihistamines and inhaled bronchodilators with some improvement in symptoms. Denies prior pulmonary or cardiac history. Had a cardiac catheterization more than 5 years ago which was reportedly normal. Takes baby aspirin daily but no other blood thinners. OBJECTIVE: Last Vital Signs Temp Pulse Resp BP Pulse Ox 99.4 F 59 L 18 165/75 100 01/22/18 22:19 01/23/18 07:10 01/23/18 07:10 01/23/18 07:10 01/23/18 07:10 Intake & Output 01/20/18 01/21/18 01/22/18 01/23/18 23:59 23:59 23:59 23:59 Weight 83.461 kg Gen: mildly tachypneic at rest Neck: +inspiratory stridor Heart: RRR Lung: decreased breath sounds at the bases Abd: soft, nontender Ext: no edema CBC, BMP 01/23/18 05:50 01/23/18 05:50 Active Medications Albuterol Sulfate (Ventolin 0.083% Nebulizer Soln -) 1 amp NEB Q1H PRN PRN Reason: SHORT OF BREATH/WHEEZING Albuterol/Ipratropium (Duoneb -) 1 amp NEB RQID KYLIE Chlorhexidine Gluconate (Hibiclens For Decolonization -) 1 applic TP HS KYLIE Dexamethasone Sodium Phosphate (Decadron Injection -) 10 mg IVPUSH Q8H-IV KYLIE Enoxaparin Sodium (Lovenox -) 40 mg SQ DAILY KYLIE Last Admin: 01/23/18 12:12 Dose: 40 mg Guaifenesin (Guaifenesin Dm Syrup) 10 ml PO Q4H PRN PRN Reason: COUGH Last Admin: 01/23/18 11:50 Dose: 10 ml Sodium Chloride (Normal Saline -) 1,000 mls @ 42 mls/hr IV ASDIR KYLIE Insulin Aspart (Novolog Vial Sliding Scale -) 1 vial SQ Q6H KYLIE PRN Reason: Protocol Mupirocin (Bactroban Ointment (For Decolonization) -) 1 applic NS BID [facility] Stop: 01/28/18 21:59 ASSESSMENT AND PLAN: Acute Respiratory Distress likely from 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 HTN DM Nonobstructive CAD - IV decadron - inhaled bronchodilators - racemic epinephrine bedside - glucose control while on systemic steroids - head and neck surgery eval - will need resection of goiter - DVT prophylaxis - ICU monitoring for airway monitoring
--- NOTE | 2018-01-23 13:59 | CONSULT ---
Consultation: CONSULT REQUEST: We have been asked to medically evaluate this patient for ICU/ CC. HISTORY OF PRESENT ILLNESS: Patient is a 77F with history of DM, CAD, HTN here today complaining of shortness of breath for months worsening over the past few days. She denies associated chest pain, fevers, chills, nausea, vomiting. She does complain of a chronic cough. She states that she has had a goiter for decades, and that she was told to not eat dairy products. CXR showed a mass, CT showed a goiter that was compressing the trachea, but the trachea was patent. Old CXR from 2013 shows similarly sized mass. REVIEW OF SYSTEMS: GENERAL/CONSTITUTIONAL: No fever or chills. No weakness. HEAD, EYES, EARS, NOSE AND THROAT: No change in vision. Positive for sore throat. CARDIOVASCULAR: No chest pain. Positive for shortness of breath RESPIRATORY: Positive for cough. Negative for wheezing, or hemoptysis. GASTROINTESTINAL: No nausea, vomiting, diarrhea or constipation. GENITOURINARY: No dysuria, frequency, or change in urination. SKIN: No rash NEUROLOGIC: No headache, vertigo, loss of consciousness, or change in strength/ sensation. ENDOCRINE: No increased thirst. No abnormal weight change HEMATOLOGIC/LYMPHATIC: No anemia, easy bleeding, or history of blood clots. ALLERGIC/IMMUNOLOGIC: No hives or skin allergy. PHYSICAL EXAMINATION Vital Signs - 24 hr 01/22/18 01/22/18 01/23/18 22:19 22:55 03:14 Temperature 99.4 F Pulse Rate 89 Pulse Rate [ 62 Left] Respiratory 25 H 18 Rate Blood Pressure 171/102 Blood Pressure 176/77 [Right Arm] O2 Sat by Pulse 96 96 100 Oximetry (%) 01/23/18 07:10 Temperature Pulse Rate Pulse Rate [ 59 L Left] Respiratory 18 Rate Blood Pressure Blood Pressure 165/75 [Right Arm] O2 Sat by Pulse 100 Oximetry (%) GENERAL: Awake, alert, and fully oriented, in no acute distress. HEAD: Normal with no signs of trauma. EYES: Pupils equal, round and reactive to light, extraocular movements intact, sclera anicteric, conjunctiva clear. EARS, NOSE, THROAT: Ears normal, nares patent, oropharynx clear without exudates. Moist mucous membranes. NECK: Normal range of motion, goiter LUNGS: Breath sounds equal, scattered wheezes. No accessory muscle use. HEART: Regular rate and rhythm, normal S1 and S2 without murmur, rub or gallop. ABDOMEN: Soft, nontender, not distended, normoactive bowel sounds, no guarding, no rebound, no masses. No hepatomegaly or splenomegaly. UPPER EXTREMITIES: 2+ pulses, warm, well-perfused. No cyanosis. No clubbing. Cap refill <2 seconds. No peripheral edema. LOWER EXTREMITIES: 2+ pulses, warm, well-perfused. No calf tenderness. No peripheral edema. NEUROLOGICAL: Cranial nerves II-XII intact. Normal speech. PSYCHIATRIC: Cooperative. Good eye contact. Appropriate mood and affect. Laboratory Results - last 24 hr 01/22/18 01/22/18 01/22/18 23:30 23:30 23:30 WBC 10.6 H RBC 4.28 Hgb 12.4 Hct 36.6 MCV 85.5 MCH 29.0 MCHC 33.9 RDW 13.3 Plt Count 187 MPV 10.1 Neutrophils % 63.4 Lymphocytes % 24.7 Monocytes % 8.0 Eosinophils % 3.3 Basophils % 0.6 PT with INR 11.30 INR 1.00 Sodium 145 Potassium 4.0 Chloride 102 Carbon Dioxide 34 H Anion Gap 9 BUN 18 Creatinine 0.9 Creat Clearance w eGFR > 60 Random Glucose 129 H Calcium 9.5 Phosphorus Magnesium Total Bilirubin 0.4 AST 16 ALT 17 Alkaline Phosphatase 96 Creatine Kinase 150 Creatine Kinase Index 0.9 CK-MB (CK-2) 1.417 Troponin I < 0.02 B-Natriuretic Peptide 171.78 Total Protein 8.3 H Albumin 4.1 TSH Urine Color Urine Appearance Urine pH Ur Specific [place] Urine Protein Urine Glucose (UA) Urine Ketones Urine Blood Urine Nitrite Urine Bilirubin Urine Urobilinogen Ur Leukocyte Esterase Urine WBC (Auto) Urine RBC (Auto) Ur Epithelial Cells 01/22/18 01/23/18 01/23/18 23:30 01:20 05:50 WBC RBC Hgb Hct MCV MCH MCHC RDW Plt Count MPV Neutrophils % Lymphocytes % Monocytes % Eosinophils % Basophils % PT with INR INR Sodium 140 Potassium 3.8 Chloride 104 Carbon Dioxide 33 H Anion Gap 3 L BUN 13 Creatinine 0.8 Creat Clearance w eGFR Random Glucose 189 H Calcium 9.1 Phosphorus 3.7 3.9 Magnesium 2.2 2.7 H Total Bilirubin AST ALT Alkaline Phosphatase Creatine Kinase Creatine Kinase Index CK-MB (CK-2) Troponin I B-Natriuretic Peptide Total Protein Albumin TSH 0.12 L Urine Color Ltyellow Urine Appearance Slcloudy Urine pH 5.0 Ur Specific [place] 1.045 H Urine Protein 2+ H Urine Glucose (UA) Negative Urine Ketones 1+ H Urine Blood 1+ H Urine Nitrite Negative Urine Bilirubin Negative Urine Urobilinogen Negative Ur Leukocyte Esterase 1+ H Urine WBC (Auto) 25 Urine RBC (Auto) 28 Ur Epithelial Cells Few 01/23/18 05:50 WBC 9.3 RBC 4.34 Hgb 12.6 Hct 37.0 MCV 85.2 MCH 29.1 MCHC 34.1 RDW 13.2 Plt Count 180 MPV 9.5 Neutrophils % 88.8 H D Lymphocytes % 9.5 D Monocytes % 1.3 L D Eosinophils % 0.0 D Basophils % 0.4 PT with INR INR Sodium Potassium Chloride Carbon Dioxide Anion Gap BUN Creatinine Creat Clearance w eGFR Random Glucose Calcium Phosphorus Magnesium Total Bilirubin AST ALT Alkaline Phosphatase Creatine Kinase Creatine Kinase Index CK-MB (CK-2) Troponin I B-Natriuretic Peptide Total Protein Albumin TSH Urine Color Urine Appearance Urine pH Ur Specific [place] Urine Protein Urine Glucose (UA) Urine Ketones Urine Blood Urine Nitrite Urine Bilirubin Urine Urobilinogen Ur Leukocyte Esterase Urine WBC (Auto) Urine RBC (Auto) Ur Epithelial Cells Active Medications Generic Name Dose Route Start Last Admin Trade Name Freq PRN Reason Stop Dose Admin Albuterol Sulfate 1 amp 01/23/18 03:22 Ventolin 0.083% Nebulizer Soln - NEB Q1H PRN SHORT OF BREATH/WHEEZING Albuterol/Ipratropium 1 amp 01/23/18 08:00 Duoneb - NEB RQID KYLIE Chlorhexidine Gluconate 1 applic 01/23/18 22:00 Hibiclens For Decolonization - TP HS KYLIE Dexamethasone Sodium Phosphate 10 mg 01/23/18 18:00 Decadron Injection - IVPUSH Q8H-IV KYLIE Enoxaparin Sodium 40 mg 01/23/18 10:00 01/23/18 12:12 Lovenox - SQ 40 mg DAILY KYLIE Administration Guaifenesin 10 ml 01/23/18 10:57 01/23/18 11:50 Guaifenesin Dm Syrup PO 10 ml Q4H PRN Administration COUGH Sodium Chloride 1,000 mls @ 42 mls/hr 01/23/18 13:30 Normal Saline - IV ASDIR [facility] Insulin Aspart 1 vial 01/23/18 13:30 Novolog Vial Sliding Scale - SQ Q6H [facility] Protocol Mupirocin 1 applic 01/23/18 22:00 Bactroban Ointment (For Decolonization) - NS 01/28/18 21:59 BID [facility] ASSESSMENT/PLAN: 77F with history of DM, goiter, CAD, HTN, seizures here today with threatened airway. Evaluated by ENT and head/neck surgery. Will do operation sunday. 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 - Dexamethasone 10mg q8 to reduce inflammation - Surgery planned for Sunday - Racemic epinephrine bedside - ICU monitoring #SOB w/ scattered wheezing - Albuterol, duonebs PRN #Cough - Guafenesin/Dextromorphan PRN Endocrine #Goiter - TSH 0.12, T3/T4 pending - Endocrinology consulted, will follow reqs - ISS FEN/GI -Replete lytes as necessary -DM Diet -Heparin DVT prophylaxis Visit type - Emergency Visit Emergency Visit: Yes ED Registration Date: 01/23/18 Care time: The patient presented to the Emergency Department on the above date and was hospitalized for further evaluation of their emergent condition. - New Patient This patient is new to me today: Yes Date on this admission: 01/23/18 - Critical Care Critical Care patient: Yes Total Critical Care Time (in minutes): 35 Critical Care Statement: The care of this patient involved high complexity decision making to prevent further life threatening deterioration of the patient 's condition and/or to evaluate & treat vital organ system(s) failure or risk of failure.
[2018-01-23] MEDS: SODIUM CHLORIDE 1,000 ML IV SCH (14:22)
[2018-01-23] MEDS: ALBUTEROL SO4 2.5/IPRATROPIUM 0.5 INH SOL 3 ML VIAL.NEB. NEB SCH ×2 (14:23→22:05)
[2018-01-23] MEDS: INSULIN SLIDING SCALE (NOVOLOG) 1 VIAL SQ SCH (14:26)
[2018-01-23] MEDS ORDERED: INSULIN (NOVOLOG) ASPART 100 UNITS/ML 10ML VIAL ONE (14:28)
--- NOTE | 2018-01-23 14:42 | CONSULT ---
- Consultation REQUESTING PROVIDER: Delmer Ibanez - Head & Neck CONSULT REQUEST: We have been asked to surgically evaluate this patient for enlarged goiter with airway compromise PCP: Jesse Olson MD HPI: Called to arnaldo 77 yo female with PMHx noted below. Comes to [facility] ED w/ c/o gradual increased SOB over the past week. States she felt like it was getting worse so she went and saw her PCP (this MD is new to the patient and can't remember name). PCP sent her for CXR which was unremarkable per patient. Next sent her for U/S to eval her goiter (known thyroid disorder x 30 years) for which she takes Synthroid. Hypothyroid is managed by her PCP. Patient states she had a U/S at [facility] ~25 yrs ago, no biopsy and no imaging studies since. Also admits to slight change in her voice. Patient had Cx CT in Ed which shows large substernal goiter right posterior, which abuts pulmonary vessels and right mainstem bronchus inferiorly, and vertebral bodies posteriorly , significant tracheal deviation and extrinsic compression to left. Denies CP, ARNETT, dysphagia, choking, coughing, wheezing or signs of aspiration. Denies diaphoresis, palpitations. Denies loss of appetite. Denies stridor or hemoptysis. PMHx: HTN, DM, heart disease and seizure disorder PSHx: Appendectomy 1975, Hysterectomy 1986 Home Meds Aspirin [Aspirin EC] 81 mg PO DAILY 01/22/18 Atenolol [Tenormin -] 100 mg PO DAILY 01/22/18 Cholecalciferol (Vitamin D3) [Vitamin D3 -] 200 unit PO DAILY 01/22/18 Hydrochlorothiazide [Hctz -] 25 mg PO DAILY 01/22/18 Levothyroxine [Synthroid -] 50 mcg PO DAILY 01/22/18 Allergies Hospitalized for reaction to Norvasc ([facility]). Significant swelling (suspect angioedema) ROS: CONSTITUTIONAL: Absent: generalized weakness, malaise, weight change CARDIOVASCULAR: Absent: syncope, irregular heart rate, lightheadedness, peripheral edema RESPIRATORY: Absent: See above. GASTROINTESTINAL:Absent: abd pain, distension, diarrhea, constipation, melena, hematochezia GENITOURINARY: Absent: dysuria, frequency, urgency, hesitancy, hematuria, flank pain, genital pain MUSCULOSKELETAL: Absent: myalgia, arthralgia, joint swelling, back pain, neck pain SKIN: Absent: rash, itching, pallor HEMATOLOGIC/IMMUNOLOGIC: Absent: easy bleeding, easy bruising, lymphadenopathy NEUROLOGIC: Absent: focal weakness, paresthesias, dizziness, unsteady gait, seizure, mental status changes PSYCHIATRIC: Absent: anxiety, depression, suicidal or homicidal ideation, hallucinations. PHYSICAL EXAM: GENERAL: Awake, alert, and fully oriented, in no acute distress. HEAD: Normal with no signs of trauma. EYES: PERRL, sclera anicteric, conjunctiva clear. NECK: Normal ROM, No JVD. thyroid goiter LUNGS: CTA bilat No wheezes or accessory muscle use. HEART: RRR ABDOMEN: Soft, NT, ND UE: 2+ pulses, warm, well-perfused. No cyanosis. Cap refill <2 seconds. No peripheral edema. LE: 2+ pulses, warm, well-perfused. No calf tenderness. No peripheral edema. NEUROLOGICAL: Normal speech, gait not observed. PSYCH: Cooperative. Good eye contact. Appropriate mood and affect. SKIN: Warm, dry, normal turgor, no rashes or lesions noted. Last Vital Signs Temp Pulse Resp BP Pulse Ox 99.4 F 59 L 18 165/75 100 01/22/18 22:19 01/23/18 07:10 01/23/18 07:10 01/23/18 07:10 01/23/18 07:10 CBC, BMP 01/23/18 05:50 01/23/18 05:50 INR, PTT INR 1.00 (0.82-1.09) 01/22/18 23:30 Problem List - Problems (1) Thyroid mass Assessment/Plan: Admit to ICU Monitor respiratory status for acute airway management if needed Pulmonary clearance IR for U/S guided biopsy Medical optimization Type and Screen Plan for surgery 01/25/18 Above plan discussed with Dr. Ibanez and agrees. Code(s): E07.9 - DISORDER OF THYROID, UNSPECIFIED (2) Tracheal compression Code(s): J98.8 - OTHER SPECIFIED RESPIRATORY DISORDERS Visit type - Case Type Case Type: ED Admission - Emergency Emergency Visit: Yes ED Registration Date: 01/23/18 Care time: The patient presented to the Emergency Department on the above date and was hospitalized for further evaluation of their emergent condition. - New patient This patient is new to me today: Yes Date on this admission: 01/23/18
[2018-01-23] MEDS ORDERED: hydrALAZINE HCL 20 MG/ML VIAL IVPUSH PRN (15:21)
[2018-01-23] MEDS: DEXAMETHASONE SOD PHOSPHATE 10 MG/1 ML VIAL IVPUSH SCH (17:07)
[2018-01-23] MEDS ORDERED: PT OWN MED DRAWER 7, Y5N ONE (17:18)
[2018-01-23] MEDS ORDERED: HEMOQUE TEST 1 EACH EACH ONE (20:15)
[2018-01-23] MEDS: MUPIROCIN 2% TOPICAL OINTMENT FOR DECOLONIZATION NS SCH (22:00)
[2018-01-23] MEDS: CHLORHEXIDINE GLUCONATE 4% CLEANSER FOR DECOLONIZATION TP SCH (22:00)
[2018-01-24] MEDS: DEXAMETHASONE SOD PHOSPHATE 10 MG/1 ML VIAL IVPUSH SCH ×3 (02:26→17:36)
[2018-01-24] MEDS: INSULIN SLIDING SCALE (NOVOLOG) 1 VIAL SQ SCH ×7 (02:26→21:42)
[2018-01-24 06:28] LABS: BASO % 0.1 % (0-2.0); HEMATOCRIT 35.5 % (32.4-45.2); HEMOGLOBIN 12.3 GM/dL (10.7-15.3); LYMPH % 7.8 % (8-40); MCH 29.2 pg (25.7-33.7); MCHC 34.7 g/dl (32.0-36.0); MEAN CELL VOLUME 84.3 fl (80-96); MEAN PLT VOLUME 10.1 fl (7.5-11.1); MONO % 2.6 % (3.8-10.2); NEUT % 89.5 % (42.8-82.8); PLATELET COUNT 190 K/MM3 (134-434); RBC 4.22 M/mm3 (3.60-5.2); RDW 13.8 % (11.6-15.6); WHITE BLOOD COUNT 14.7 K/mm3 (4.0-10.0)
[2018-01-24 06:40] LABS: INR 1.07 (0.82-1.09); PROTHROMBIN TIME (PATIENT) 12.1 SEC (9.7-13.0)
[2018-01-24 07:00] LABS: ANION GAP 8 (8-16); BLOOD UREA NITROGEN 16 mg/dL (7-18); CALCIUM 9.5 mg/dL (8.5-10.1); CHLORIDE 104 mmol/L (98-107); CO2 31 mmol/L (21-32); CREATININE 0.7 mg/dL (0.55-1.02); GLUCOSE,RANDOM 157 mg/dL (74-106); SODIUM 143 mmol/L (136-145)
[2018-01-24] MEDS: ALBUTEROL SO4 2.5/IPRATROPIUM 0.5 INH SOL 3 ML VIAL.NEB. NEB SCH ×3 (07:30→16:40)
--- NOTE | 2018-01-24 07:30 | PN ---
Physical Exam: SUBJECTIVE: Patient seen and examined - No major overnight events; Donnie to 50s, BP 189/85 this AM; ordered for 10mg IV hydralazine; new WBC count this AM to 14.7; breathing improved since yesterday; NO BM, currently NPO; endorsing mild KOENIG; denies f/c/n/v/d, CP, ab pain, back pain, LE edema, FNDs OBJECTIVE: Vital Signs Intake & Output 01/21/18 01/22/18 01/23/18 01/24/18 23:59 23:59 23:59 23:59 Intake Total 475.7 Balance 475.7 Weight 83.461 kg 83.461 kg Period Temp Pulse Resp BP Sys/Eduardo Pulse Ox Last 24 Hr 97.3 F-99.2 F 52-76 13-20 130-189/66-97 96-100 GENERAL: Middle aged woman, in NAD HEAD: NCAT EYES: PERRL, extraocular movements intact, sclera anicteric, conjunctiva clear. No ptosis. ENT: Ears normal, nares patent, oropharynx clear without exudates, moist mucous membranes. NECK: I/E stridor still noted on exam. Large palpable neck mass notable on R neck LUNGS: trace upper airway wheezing. no crackles, no accessory muscle use. stridor noted in upper airways. HEART: Regular rate and rhythm, S1, S2 without murmur, rub or gallop. ABDOMEN: Globular. Soft, nontender, nondistended, normoactive bowel sounds, no guarding, no rebound, nohepatosplenomegaly, no masses. No CVA tenderness. EXTREMITIES: 2+ pulses, warm, well-perfused, no edema. NEUROLOGICAL: Cranial nerves II through XII grossly intact. Normal speech, gait not observed. PSYCH: Normal mood, normal affect. Pleasant, interactive SKIN: Warm, dry, normal turgor, no rashes or lesions noted Laboratory Results - last 24 hr CBC, BMP 01/24/18 05:32 01/24/18 05:32 01/23/18 01/23/18 01/23/18 05:50 14:21 20:19 WBC RBC Hgb Hct MCV MCH MCHC RDW Plt Count MPV Neutrophils % Lymphocytes % Monocytes % Eosinophils % Basophils % PT with INR INR Sodium Potassium Chloride Carbon Dioxide Anion Gap BUN Creatinine POC Glucometer 189.88855 149.59661 Random Glucose Calcium Free T4 1.17 01/24/18 01/24/18 01/24/18 05:32 05:32 05:32 WBC 14.7 H D RBC 4.22 Hgb 12.3 Hct 35.5 MCV 84.3 MCH 29.2 MCHC 34.7 RDW 13.8 Plt Count 190 MPV 10.1 Neutrophils % 89.5 H Lymphocytes % 7.8 L Monocytes % 2.6 L D Eosinophils % 0.0 Basophils % 0.1 PT with INR 12.10 INR 1.07 Sodium 143 Potassium 4.0 Chloride 104 Carbon Dioxide 31 Anion Gap 8 BUN 16 Creatinine 0.7 POC Glucometer Random Glucose 157 H Calcium 9.5 Free T4 [place] 01/24/18 05:47 WBC RBC Hgb Hct MCV MCH MCHC RDW Plt Count MPV Neutrophils % Lymphocytes % Monocytes % Eosinophils % Basophils % PT with INR INR Sodium Potassium Chloride Carbon Dioxide Anion Gap BUN Creatinine POC Glucometer 171.82030 Random Glucose Calcium Free T4 Active Medications Generic Name Dose Route Start Last Admin Trade Name Freq PRN Reason Stop Dose Admin Albuterol Sulfate 1 amp 01/23/18 03:22 Ventolin 0.083% Nebulizer Soln - NEB Q1H PRN SHORT OF BREATH/WHEEZING Albuterol/Ipratropium 1 amp 01/23/18 08:00 01/23/18 22:05 Duoneb - NEB 1 amp RQID KYLIE Administration Chlorhexidine Gluconate 1 applic 01/23/18 22:00 01/23/18 22:00 Hibiclens For Decolonization - TP 1 applic HS KYLIE Administration Dexamethasone Sodium Phosphate 10 mg 01/23/18 18:00 01/24/18 02:26 Decadron Injection - IVPUSH 10 mg Q8H-IV KYLIE Administration Enoxaparin Sodium 40 mg 01/23/18 10:00 01/23/18 12:12 Lovenox - SQ 40 mg DAILY KYLIE Administration Guaifenesin 10 ml 01/23/18 10:57 01/23/18 11:50 Guaifenesin Dm Syrup PO 10 ml Q4H PRN Administration COUGH Hydralazine HCl 10 mg 01/23/18 15:21 Apresoline Injection - IVPUSH Q6H PRN HYPERTENSION Sodium Chloride 1,000 mls @ 42 mls/hr 01/23/18 13:30 01/23/18 14:22 Normal Saline - IV 42 mls/hr ASDIR KYLIE Administration Insulin Aspart 1 vial 01/23/18 13:30 01/24/18 06:46 Novolog Vial Sliding Scale - SQ 1 unit Q6H KYLIE Administration Protocol Mupirocin 1 applic 01/23/18 22:00 01/23/18 22:00 Bactroban Ointment (For Decolonization) - NS 01/28/18 21:59 1 applic BID KYLIE Administration No micro CXR 01/22 - Right paratracheal soft tissue mass, unchanged since prior chest x- ray the 03/17/2014 that may represent an enlarged retrosternal right thyroid lobe for which correlation with CT scan of the chest or thyroid ultrasound is needed. CHEST CT W CONTRAST 01/23: goiter right sided, 7.7x6.6 cm which significantly displaces and narrows the trachea to the left. ASSESSMENT/PLAN: 77 year old female with a PMH of goiter, hypothyroid, htn, who presents for worsening shortness of breath after a viral illness. CT chest notable for large suspected thyroid mass with extrinsic compression of trachea. Plan for surgical resection of thyroid mass tomorrow with Dr. Ibanez. #Stridor/respiratory distress secondary to suspected thyromegaly - CT confirmed - Presumptive OR tomorrow for thyroidectomy; possible IR guided bx - Decadron - duonebs qidr - Racemic epi PRN - robitussin dm -pulm following - ENT consulted; plan for surgery with Dr. Bustos on Sunday, 01/25 -f/u t3/t4; TSH 0.12 - hold synthroid - Endo consulted - Dr. Cuello - O2 support, close monitoring for respiratory compromise; limit all agitation/ manipulation of trachea or thyroid mass given minimal tracheal reserve - Unlikely to tolerate intubation or cricothyroidotomy if unable to maintain airway; Alert anesthesia team emergently if evidence of respiratory failure #HTN -Hold atenolol given bronchospastic component; hold HCTZ as pt on IVFs - hydralazine IV 10mg q6h prn #hypothyroid- - Endo following -Decreased LT4 to 50 qD per week -tsh, t3, t4 #DM2 - hold oral agents - ISS - BGMs PPX Lovenox FEN NS 42cc/hr Daily lytes NPO for now ICU Plan discussed with Dr. Wesley Silverman, PGY1 Visit type - Emergency Visit Emergency Visit: Yes ED Registration Date: 01/23/18 Care time: The patient presented to the Emergency Department on the above date and was hospitalized for further evaluation of their emergent condition. - New Patient This patient is new to me today: No - Critical Care Critical Care patient: Yes Total Critical Care Time (in minutes): 35 Critical Care Statement: The care of this patient involved high complexity decision making to prevent further life threatening deterioration of the patient 's condition and/or to evaluate & treat vital organ system(s) failure or risk of failure.
[2018-01-24] MEDS ORDERED: hydrALAZINE HCL 20 MG/ML VIAL IM ONE (07:45)
--- NOTE | 2018-01-24 08:33 | PN ---
Teaching Attending Note Name of Resident: Homar Silverman ATTENDING PHYSICIAN STATEMENT I saw and evaluated the patient. I reviewed the resident's note and discussed the case with the resident. I agree with the resident's findings and plan as documented with exceptions below. SUBJECTIVE: Patient seen and examined. breathing overall the same, still with intermittent dyspnea. no other complaints. OBJECTIVE: Vital Signs Period Temp Pulse Resp BP Sys/Eduardo Pulse Ox Last 24 Hr 97.3 F-99.2 F 52-76 13-20 130-208/66-97 96-100 Intake & Output 01/21/18 01/22/18 01/23/18 01/24/18 23:59 23:59 23:59 23:59 Intake Total 475.7 Balance 475.7 Weight 184 lb 184 lb General:sitting in bed with mild use of acessory muscles of respiration Chest: few scattered wheezing, positive air entry bilaterally Neck: positive stridor, neck swelling unchanged Home Medication List Medication Instructions Recorded Confirmed Type Aspirin [Aspirin EC] 81 mg PO DAILY 01/22/18 01/22/18 History Atenolol [Tenormin -] 100 mg PO DAILY 01/22/18 01/22/18 History Cholecalciferol (Vitamin D3) 200 unit PO DAILY 01/22/18 01/22/18 History [Vitamin D3 -] Hydrochlorothiazide [Hctz -] 25 mg PO DAILY 01/22/18 01/22/18 History Levothyroxine [Synthroid -] 50 mcg PO DAILY 01/22/18 01/22/18 History Amlodipine Besylate 10 mg PO DAILY 01/23/18 History Active Medications Generic Name Dose Route Start Last Admin Trade Name Kevinq PRN Reason Stop Dose Admin Albuterol Sulfate 1 amp 01/23/18 03:22 Ventolin 0.083% Nebulizer Soln - NEB Q1H PRN SHORT OF BREATH/WHEEZING Albuterol/Ipratropium 1 amp 01/23/18 08:00 01/24/18 07:30 Duoneb - NEB 1 amp RQID KYLIE Administration Chlorhexidine Gluconate 1 applic 01/23/18 22:00 01/23/18 22:00 Hibiclens For Decolonization - TP 1 applic HS KYLIE Administration Dexamethasone Sodium Phosphate 10 mg 01/23/18 18:00 01/24/18 02:26 Decadron Injection - IVPUSH 10 mg Q8H-IV KYLIE Administration Enoxaparin Sodium 40 mg 01/23/18 10:00 01/23/18 12:12 Lovenox - SQ 40 mg DAILY KYLIE Administration Guaifenesin 10 ml 01/23/18 10:57 01/23/18 11:50 Guaifenesin Dm Syrup PO 10 ml Q4H PRN Administration COUGH Hydralazine HCl 10 mg 01/23/18 15:21 01/24/18 07:44 Apresoline Injection - IVPUSH 10 mg Q6H PRN Administration HYPERTENSION Sodium Chloride 1,000 mls @ 42 mls/hr 01/23/18 13:30 01/23/18 14:22 Normal Saline - IV 42 mls/hr ASDIR KYLIE Administration Insulin Aspart 1 vial 01/23/18 13:30 01/24/18 06:46 Novolog Vial Sliding Scale - SQ 1 unit Q6H KYLIE Administration Protocol Mupirocin 1 applic 01/23/18 22:00 01/23/18 22:00 Bactroban Ointment (For Decolonization) - NS 01/28/18 21:59 1 applic BID KYLIE Administration Laboratory Results - last 24 hr 01/23/18 01/23/18 01/23/18 05:50 14:21 20:19 WBC RBC Hgb Hct MCV MCH MCHC RDW Plt Count MPV Neutrophils % Lymphocytes % Monocytes % Eosinophils % Basophils % PT with INR INR Sodium Potassium Chloride Carbon Dioxide Anion Gap BUN Creatinine POC Glucometer 189.35189 149.33108 Random Glucose Calcium Free T4 [place] 1.17 01/24/18 01/24/18 01/24/18 05:32 05:32 05:32 WBC 14.7 H D RBC 4.22 Hgb 12.3 Hct 35.5 MCV 84.3 MCH 29.2 MCHC 34.7 RDW 13.8 Plt Count 190 MPV 10.1 Neutrophils % 89.5 H Lymphocytes % 7.8 L Monocytes % 2.6 L D Eosinophils % 0.0 Basophils % 0.1 PT with INR 12.10 INR 1.07 Sodium 143 Potassium 4.0 Chloride 104 Carbon Dioxide 31 Anion Gap 8 BUN 16 Creatinine 0.7 POC Glucometer Random Glucose 157 H Calcium 9.5 Free T4 01/24/18 05:47 WBC RBC Hgb Hct MCV MCH MCHC RDW Plt Count MPV Neutrophils % Lymphocytes % Monocytes % Eosinophils % Basophils % PT with INR INR Sodium Potassium Chloride Carbon Dioxide Anion Gap BUN Creatinine POC Glucometer 171.15656 Random Glucose Calcium Free T4 ASSESSMENT AND PLAN: 77 yof with PMHx of HTN, DM, hypothyroidism, known thyroid masses, admitted with shortness of breath, markedly enlarged right thyroid gland with extrinsic tracheal compression and impending respiratory failure. -Shortness of breath/Impending respiratory failure from substernal goiter with extrinsic tracheal compression likely decompensated by URI like illness vs acute bronchospastic disease -Hypothyroidism -HTN -HYperglycemia, ?Steroid induced vs new onset diabetic -Leucocytosis suspect steroid induced demargination Plan: Plan for surgical intervention tomorrow. Continue decadron, nebs, close monitoring of respiratory status. NPO for now. HOld atenolol given concern for bronchospastic component, hold HCTZ while on gentle hydration given NPO. Hydralazine prn if persistently hypertensive. BGM, ISS, A1c noted. reports h/o DM, retrieve home meds. TSH noted, follow up free T4 and total T3. Follow up Endocrine input. Lovenox for DVTPPX dispo pending clinical improvement and surgical intervention. Plan discussed with patient in detail, all questions answered.
[2018-01-24] MEDS ORDERED: ACETAMINOPHEN 1000 MG/100 ML VIAL (NON FORMULARY) IVPB PRN (09:18)
[2018-01-24] MEDS: ENOXAPARIN NA (PORCINE) 40 MG/0.4 ML DISP.SYRIN SQ SCH (09:19)
[2018-01-24] MEDS: MUPIROCIN 2% TOPICAL OINTMENT FOR DECOLONIZATION NS SCH ×2 (09:25→21:42)
--- NOTE | 2018-01-24 10:39 | CONSULT ---
Consult Consult Specialty:: Endocrinology Referred by:: Dr Silverman Reason for Consultation:: Thyromegaly - History of Present Illness Chief Complaint: SOB History of Present Illness: This is a 77 year old female with h/o cardiac disorder, DM, HTN, Hypothyroidism , Goiter diagnosed >20 years ago and seizures who presented to the emergency department with shortness of breath over the past few weeks which worsened approximately 4 days ago and cough. The patient reports she has had intermittent shortness of breath for several weeks which became worse and more frequent since Sunday. She reports waking up very uncomfortable due to her shortness of breath, with associated dry cough and came to ED. 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 Surgery was consulted and pt is scheduled for surgery tomorrow. For possible biopsy today. Pt currently on LT4 50mcg daily. Last dose taken 2 days ago. Denies any heat or cold intolerance. No tremors of hands. - History Source History Provided By: Patient, Medical Record - Past Medical History Endocrine: Yes: Diabetes Mellitus, Hypothyroidism, Other (Goiter) - Past Surgical History Past Surgical History: Yes: Appendectomy, Hysterectomy - Alcohol/Substance Use Hx Alcohol Use: No - Smoking History Smoking history: Never smoked Have you smoked in the past 12 months: No Home Medications - Allergies Allergies/Adverse Reactions: Allergies Allergy/AdvReac Type Severity Reaction Status Date / Time amlodipine [From [facility]] Allergy Severe Swelling Verified 01/23/18 00:19 - Home Medications Home Medications: Ambulatory Orders Aspirin [Aspirin EC] 81 mg PO DAILY 01/22/18 Atenolol [Tenormin -] 100 mg PO DAILY 01/22/18 Cholecalciferol (Vitamin D3) [Vitamin D3 -] 200 unit PO DAILY 01/22/18 Hydrochlorothiazide [Hctz -] 25 mg PO DAILY 01/22/18 Levothyroxine [Synthroid -] 50 mcg PO DAILY 01/22/18 Amlodipine Besylate 10 mg PO DAILY 01/23/18 Glipizide [Glipizide ER] 2.5 mg PO DAILY 01/24/18 Family Disease History - Family Disease History Family Disease History: Other: Daughter (2 alive and well) Other Family History: Daughter had goiter which was surgically removed Review of Systems - Review of Systems Constitutional: reports: No Symptoms Eyes: reports: No Symptoms HENT: reports: No Symptoms Neck: reports: No Symptoms Cardiovascular: reports: Shortness of Breath Respiratory: reports: SOB Gastrointestinal: reports: No Symptoms Genitourinary: reports: No Symptoms Musculoskeletal: reports: No Symptoms Neurological: reports: No Symptoms Endocrine: reports: No Symptoms Hematology/Lymphatic: reports: No Symptoms Physical Exam Vital Signs: Vital Signs Temperature 98 F 01/24/18 07:00 Pulse Rate 74 01/24/18 10:00 Respiratory Rate 14 01/24/18 10:00 Blood Pressure 162/71 01/24/18 10:00 O2 Sat by Pulse Oximetry (%) 99 01/24/18 08:19 Constitutional: Yes: No Distress, Calm Eyes: Yes: Conjunctiva Clear, EOM Intact HENT: Yes: Atraumatic, Normocephalic Neck: Yes: Supple, Thyromegaly Cardiovascular: Yes: Regular Rate and Rhythm Respiratory: Yes: Regular, CTA Bilaterally Gastrointestinal: Yes: Normal Bowel Sounds, Soft Musculoskeletal: Yes: WNL Extremities: Yes: WNL Edema: No Neurological: Yes: Alert, Oriented Labs: CBC, BMP 01/24/18 05:32 01/24/18 05:32 Imaging - Results Chest X-ray: Report Reviewed Cat Scan: Report Reviewed Problem List - Problems (1) SOB (shortness of breath) Code(s): R06.02 - SHORTNESS OF BREATH (2) Thyroid mass Code(s): E07.9 - DISORDER OF THYROID, UNSPECIFIED (3) Tracheal compression Code(s): J98.8 - OTHER SPECIFIED RESPIRATORY DISORDERS Assessment/Plan AP: Acute Respiratory Distress likely from 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
--- NOTE | 2018-01-24 10:56 | PN ---
Physical Exam: SUBJECTIVE: Patient seen and examined in ICU. No acute events overnight. Patient reports some shortness of breath and a sore throat. States that she's improved with some breathing treatments. OBJECTIVE: Vital Signs Period Temp Pulse Resp BP Sys/Eduardo Pulse Ox Last 24 Hr 97.3 F-99.2 F 52-80 13-18 130-208/66-97 96-100 GENERAL: The patient is awake, alert, and fully oriented, in no acute distress. HEAD: Normal with no signs of trauma. EYES: PERRL, extraocular movements intact, sclera anicteric, conjunctiva clear. LUNGS: Breath sounds equal, scattered wheezes bilaterally HEART: Regular rate and rhythm, S1, S2 without murmur, rub or gallop. ABDOMEN: Soft, nontender, nondistended, normoactive bowel sounds, no masses. EXTREMITIES: 2+ pulses, warm, well-perfused, no edema. NEUROLOGICAL: Cranial nerves II through XII grossly intact. Normal speech, gait not observed. SKIN: Warm, dry, normal turgor, no rashes or lesions noted Laboratory Results - last 24 hr 01/23/18 01/23/18 01/23/18 05:50 14:21 20:19 WBC RBC Hgb Hct MCV MCH MCHC RDW Plt Count MPV Neutrophils % Lymphocytes % Monocytes % Eosinophils % Basophils % PT with INR INR Sodium Potassium Chloride Carbon Dioxide Anion Gap BUN Creatinine POC Glucometer 189.49961 149.32717 Random Glucose Hemoglobin A1c % Calcium Free T4 1.17 01/24/18 01/24/18 01/24/18 02:23 02:24 05:32 WBC RBC Hgb Hct MCV MCH MCHC RDW Plt Count MPV Neutrophils % Lymphocytes % Monocytes % Eosinophils % Basophils % PT with INR 12.10 INR 1.07 Sodium Potassium Chloride Carbon Dioxide Anion Gap BUN Creatinine POC Glucometer 183.73535 184.84070 Random Glucose Hemoglobin A1c % Calcium Free T4 01/24/18 01/24/18 01/24/18 05:32 05:32 05:32 WBC 14.7 H D RBC 4.22 Hgb 12.3 Hct 35.5 MCV 84.3 MCH 29.2 MCHC 34.7 RDW 13.8 Plt Count 190 MPV 10.1 Neutrophils % 89.5 H Lymphocytes % 7.8 L Monocytes % 2.6 L D Eosinophils % 0.0 Basophils % 0.1 PT with INR INR Sodium 143 Potassium 4.0 Chloride 104 Carbon Dioxide 31 Anion Gap 8 BUN 16 Creatinine 0.7 POC Glucometer Random Glucose 157 H Hemoglobin A1c % 6.6 H Calcium 9.5 Free T4 01/24/18 05:47 WBC RBC Hgb Hct MCV MCH MCHC RDW Plt Count MPV Neutrophils % Lymphocytes % Monocytes % Eosinophils % Basophils % PT with INR INR Sodium Potassium Chloride Carbon Dioxide Anion Gap BUN Creatinine POC Glucometer 171.88854 Random Glucose Hemoglobin A1c % Calcium Free T4 [place] Active Medications Generic Name Dose Route Start Last Admin Trade Name Freq PRN Reason Stop Dose Admin Acetaminophen 1,000 mg 01/24/18 09:18 Ofirmev Injection - IVPB Q6H PRN HEADACHE Albuterol Sulfate 1 amp 01/23/18 03:22 Ventolin 0.083% Nebulizer Soln - NEB Q1H PRN SHORT OF BREATH/WHEEZING Albuterol/Ipratropium 1 amp 01/23/18 08:00 01/24/18 07:30 Duoneb - NEB 1 amp RQID KYLIE Administration Chlorhexidine Gluconate 1 applic 01/23/18 22:00 01/23/18 22:00 Hibiclens For Decolonization - TP 1 applic HS KYLIE Administration Dexamethasone Sodium Phosphate 10 mg 01/23/18 18:00 01/24/18 09:15 Decadron Injection - IVPUSH 10 mg Q8H-IV KYLIE Administration Enoxaparin Sodium 40 mg 01/23/18 10:00 01/24/18 09:19 Lovenox - SQ 40 mg DAILY KYILE Administration Guaifenesin 10 ml 01/23/18 10:57 01/23/18 11:50 Guaifenesin Dm Syrup PO 10 ml Q4H PRN Administration COUGH Hydralazine HCl 10 mg 01/24/18 09:25 Apresoline Injection - IVPUSH Q6H PRN HYPERTENSION Sodium Chloride 1,000 mls @ 42 mls/hr 01/23/18 13:30 01/23/18 14:22 Normal Saline - IV 42 mls/hr ASDIR KYLIE Administration Insulin Aspart 1 vial 01/23/18 13:30 01/24/18 06:46 Novolog Vial Sliding Scale - SQ 1 unit Q6H KYLIE Administration Protocol Mupirocin 1 applic 01/23/18 22:00 01/24/18 09:25 Bactroban Ointment (For Decolonization) - NS 01/28/18 21:59 1 applic BID KYLIE Administration ASSESSMENT/PLAN: 77F with history of DM, goiter, CAD, HTN, seizures here today with threatened airway. Evaluated by ENT and head/neck surgery. Will do operation sunday. Will monitor in ICU for possible airway emergency. Respiratory #Tracheal compression secondary to goiter - Dexamethasone 10mg q8 to reduce inflammation - Biopsy today to evaluate for how aggressive mass is - Surgery planned for Sunday - Racemic epinephrine bedside - ICU monitoring #SOB w/ scattered wheezing - Albuterol, duonebs PRN #Cough - Guafenesin/Dextromorphan PRN Endocrine #Goiter - TSH 0.12, T4 normal - Endocrinology consulted, will follow reqs - ISS FEN/GI -Replete lytes as necessary -DM Diet -Heparin DVT prophylaxis Dispo- continued ICU airway monitoring Visit type - Emergency Visit Emergency Visit: Yes ED Registration Date: 01/23/18 Care time: The patient presented to the Emergency Department on the above date and was hospitalized for further evaluation of their emergent condition. - New Patient This patient is new to me today: No - Critical Care Critical Care patient: Yes Total Critical Care Time (in minutes): 35 Critical Care Statement: The care of this patient involved high complexity decision making to prevent further life threatening deterioration of the patient 's condition and/or to evaluate & treat vital organ system(s) failure or risk of failure.
--- NOTE | 2018-01-24 11:03 | PN ---
Teaching Attending Note Name of Resident: Wiley Weber ATTENDING PHYSICIAN STATEMENT I saw and evaluated the patient. I reviewed the resident's note and discussed the case with the resident. I agree with the resident's findings and plan as documented. SUBJECTIVE: Pt seen and examined in the ICU. Still with some dyspnea, wheezing and nonproductive cough. Overall improving from admission. OBJECTIVE: Last Vital Signs Temp Pulse Resp BP Pulse Ox 98 F 74 14 162/71 99 01/24/18 07:00 01/24/18 10:00 01/24/18 10:00 01/24/18 10:00 01/24/18 08:19 Intake & Output 01/21/18 01/22/18 01/23/18 01/24/18 23:59 23:59 23:59 23:59 Intake Total 475.7 Balance 475.7 Weight 83.461 kg 83.461 kg Gen: mildly tachypneic at rest Neck: +inspiratory stridor Heart: RRR Lung: decreased breath sounds at the bases Abd: soft, nontender Ext: no edema CBC, BMP 01/24/18 05:32 01/24/18 05:32 Active Medications Acetaminophen (Ofirmev Injection -) 1,000 mg IVPB Q6H PRN PRN Reason: HEADACHE Albuterol Sulfate (Ventolin 0.083% Nebulizer Soln -) 1 amp NEB Q1H PRN PRN Reason: SHORT OF BREATH/WHEEZING Albuterol/Ipratropium (Duoneb -) 1 amp NEB RQID KYLIE Last Admin: 01/24/18 07:30 Dose: 1 amp Chlorhexidine Gluconate (Hibiclens For Decolonization -) 1 applic TP HS KYLIE Last Admin: 01/23/18 22:00 Dose: 1 applic Dexamethasone Sodium Phosphate (Decadron Injection -) 10 mg IVPUSH Q8H-IV KYLIE Last Admin: 01/24/18 09:15 Dose: 10 mg Enoxaparin Sodium (Lovenox -) 40 mg SQ DAILY KYLIE Last Admin: 01/24/18 09:19 Dose: 40 mg Guaifenesin (Guaifenesin Dm Syrup) 10 ml PO Q4H PRN PRN Reason: COUGH Last Admin: 01/23/18 11:50 Dose: 10 ml Hydralazine HCl (Apresoline Injection -) 10 mg IVPUSH Q6H PRN PRN Reason: HYPERTENSION Sodium Chloride (Normal Saline -) 1,000 mls @ 42 mls/hr IV ASDIR [facility] Last Admin: 01/23/18 14:22 Dose: 42 mls/hr Insulin Aspart (Novolog Vial Sliding Scale -) 1 vial SQ Q6H KYLIE PRN Reason: Protocol Last Admin: 01/24/18 06:46 Dose: 1 unit Mupirocin (Bactroban Ointment (For Decolonization) -) 1 applic NS BID [facility] Stop: 01/28/18 21:59 Last Admin: 01/24/18 09:25 Dose: 1 applic ASSESSMENT AND PLAN: Acute Respiratory Distress likely from 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
[2018-01-24] MEDS: SODIUM CHLORIDE 1,000 ML IV SCH (12:05)
--- NOTE | 2018-01-24 13:22 | PN ---
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 Ibanez/Jasen Brown Problem List - Problems (1) Thyroid mass Code(s): E07.9 - DISORDER OF THYROID, UNSPECIFIED
--- NOTE | 2018-01-24 17:41 | SPA.PREOP ---
- PRE-OP NOTE Dx: Planned Procedure: thyroidectomy Surgeon: Dr. Ibanez Last Vital Signs Temp Pulse Resp BP Pulse Ox 98 F 56 L 16 136/64 99 01/24/18 07:00 01/24/18 16:00 01/24/18 16:00 01/24/18 16:00 01/24/18 08:19 Lab Results WBC 14.7 K/mm3 (4.0-10.0) H D 01/24/18 05:32 RBC 4.22 M/mm3 (3.60-5.2) 01/24/18 05:32 Hgb 12.3 GM/dL (10.7-15.3) 01/24/18 05:32 Hct 35.5 % (32.4-45.2) 01/24/18 05:32 MCV 84.3 fl (80-96) 01/24/18 05:32 MCHC 34.7 g/dl (32.0-36.0) 01/24/18 05:32 RDW 13.8 % (11.6-15.6) 01/24/18 05:32 Plt Count 190 K/MM3 (134-434) 01/24/18 05:32 Sodium 143 mmol/L (136-145) 01/24/18 05:32 Potassium 4.0 mmol/L (3.5-5.1) 01/24/18 05:32 Chloride 104 mmol/L (98-107) 01/24/18 05:32 Carbon Dioxide 31 mmol/L (21-32) 01/24/18 05:32 Anion Gap 8 (8-16) 01/24/18 05:32 BUN 16 mg/dL (7-18) 01/24/18 05:32 Creatinine 0.7 mg/dL (0.55-1.02) 01/24/18 05:32 Random Glucose 157 mg/dL (74-106) H 01/24/18 05:32 Calcium 9.5 mg/dL (8.5-10.1) 01/24/18 05:32 INR 1.07 (0.82-1.09) 01/24/18 05:32 - IMAGING Cat Scan: Report Reviewed (lung kent without masses, effusion,infiltrates. enlarged right thyroid) - ASSESSMENT/PLAN 1. Make NPO after midnight except po meds 2. GI/DVT PPX 3. Medical optimization / clearance 4. T&S Visit type - Case Type Case Type: ED Admission - Emergency Emergency Visit: Yes ED Registration Date: 01/23/18 Care time: The patient presented to the Emergency Department on the above date and was hospitalized for further evaluation of their emergent condition. - New patient This patient is new to me today: Yes Date on this admission: 01/24/18
[2018-01-24] MEDS: CHLORHEXIDINE GLUCONATE 4% CLEANSER FOR DECOLONIZATION TP SCH (21:40)
[2018-01-25] MEDS: DEXAMETHASONE SOD PHOSPHATE 10 MG/1 ML VIAL IVPUSH SCH ×3 (03:20→17:14)
[2018-01-25] MEDS: LEVOTHYROXINE NA 50 MCG TABLET (FP) PO SCH (06:08)
[2018-01-25] MEDS: INSULIN SLIDING SCALE (NOVOLOG) 1 VIAL SQ SCH ×4 (06:08→21:15)
[2018-01-25 06:32] LABS: BASO % 0.1 % (0-2.0); HEMATOCRIT 33.9 % (32.4-45.2); HEMOGLOBIN 11.9 GM/dL (10.7-15.3); LYMPH % 7.1 % (8-40); MCH 29.5 pg (25.7-33.7); MEAN CELL VOLUME 84.2 fl (80-96); MEAN PLT VOLUME 10.3 fl (7.5-11.1); MONO % 4.2 % (3.8-10.2); NEUT % 88.6 % (42.8-82.8); PLATELET COUNT 202 K/MM3 (134-434); RBC 4.02 M/mm3 (3.60-5.2); RDW 13.5 % (11.6-15.6); WHITE BLOOD COUNT 15.1 K/mm3 (4.0-10.0)
[2018-01-25 06:43] LABS: INR 1.11 (0.82-1.09); PROTHROMBIN TIME (PATIENT) 12.5 SEC (9.7-13.0)
[2018-01-25 06:58] LABS: ALBUMIN 3.4 g/dl (3.4-5.0); ANION GAP 7 (8-16); BLOOD UREA NITROGEN 21 mg/dL (7-18); CALCIUM 9.1 mg/dL (8.5-10.1); CHLORIDE 106 mmol/L (98-107); CO2 30 mmol/L (21-32); GLUCOSE,RANDOM 129 mg/dL (74-106); MAGNESIUM 2.5 mg/dL (1.8-2.4); PHOSPHOROUS 3.8 mg/dL (2.5-4.9); POTASSIUM 3.9 mmol/L (3.5-5.1); SGOT/AST 14 U/L (15-37); SODIUM 143 mmol/L (136-145)
[2018-01-25 07:00] LABS: ALK PHOS 59 U/L (45-117); BILIRUBIN,TOTAL 0.4 mg/dL (0.2-1.0); CREATININE 0.7 mg/dL (0.55-1.02); SGPT/ALT 13 U/L (12-78)
[2018-01-25] MEDS: hydrALAZINE HCL 20 MG/ML VIAL IVPUSH PRN ×2 (07:31→18:30)
[2018-01-25] MEDS: SODIUM CHLORIDE 1,000 ML IV SCH (07:33)
--- NOTE | 2018-01-25 07:42 | PN ---
Physical Exam: SUBJECTIVE: Patient seen and examined by me this AM - No overnight events; Hypertensive to 177 systolic in AM; afebrile; still with productive cough; denies any SOB or dyspnea; One BM overnight; mild KOENIG in am, resolved on interview; Denies f/c/n/v/d, CP, ab pain, back pain, LE edema, FNDs ; Pt complaining of pain in R shoulder and swelling in R arm; Duplex ordered, negative OBJECTIVE: Vital Signs Intake & Output 01/22/18 01/23/18 01/24/18 01/25/18 23:59 23:59 23:59 23:59 Intake Total 1279.7 604 Balance 1279.7 604 Weight 83.461 kg 83.461 kg 84 kg Period Temp Pulse Resp BP Sys/Eduardo Pulse Ox Last 24 Hr 98.1 F-98.3 F 51-98 14-21 128-177/60-116 99-100 GENERAL: Middle aged woman, in NAD HEAD: NCAT EYES: PERRL, extraocular movements intact, sclera anicteric, conjunctiva clear. No ptosis. ENT: Ears normal, nares patent, oropharynx clear without exudates, moist mucous membranes. NECK: I/E stridor noted. Large palpable neck mass notable on R neck LUNGS: Mild upper airway wheezing secondary to stridor. no crackles, no accessory muscle use. stridor noted in upper airways. HEART: Regular rate and rhythm, S1, S2 without murmur, rub or gallop. ABDOMEN: Globular. Soft, nontender, nondistended, normoactive bowel sounds, no guarding, no rebound, nohepatosplenomegaly, no masses. No CVA tenderness. EXTREMITIES: 2+ pulses, warm, well-perfused, no edema. NEUROLOGICAL: Cranial nerves II through XII grossly intact. Normal speech, gait not observed. PSYCH: Normal mood, normal affect. Pleasant, interactive SKIN: Warm, dry, normal turgor, no rashes or lesions noted Laboratory Results - last 24 hr CBC, BMP 01/25/18 05:00 01/25/18 05:00 01/25/18 05:00 01/23/18 01/23/18 01/24/18 05:50 17:06 02:23 WBC RBC Hgb Hct MCV MCH MCHC RDW Plt Count MPV Neutrophils % Lymphocytes % Monocytes % Eosinophils % Basophils % PT with INR INR POC Glucometer 190.67975 183.34171 Hemoglobin A1c % Free T3 3.2 Blood Type Antibody Screen 01/24/18 01/24/18 01/24/18 02:24 05:32 12:14 WBC RBC Hgb Hct MCV MCH MCHC RDW Plt Count MPV Neutrophils % Lymphocytes % Monocytes % Eosinophils % Basophils % PT with INR INR POC Glucometer 184.27020 186.43053 Hemoglobin A1c % 6.6 H Free T3 Blood Type Antibody Screen 01/24/18 01/24/18 01/25/18 16:30 21:45 05:00 WBC 15.1 H RBC 4.02 Hgb 11.9 Hct 33.9 MCV 84.2 MCH 29.5 MCHC 35.0 RDW 13.5 Plt Count 202 MPV 10.3 Neutrophils % 88.6 H Lymphocytes % 7.1 L Monocytes % 4.2 Eosinophils % 0.0 Basophils % 0.1 PT with INR INR POC Glucometer 145.90708 Hemoglobin A1c % Free T3 Blood Type O POSITIVE Antibody Screen Negative 01/25/18 05:00 WBC RBC Hgb Hct MCV MCH MCHC RDW Plt Count MPV Neutrophils % Lymphocytes % Monocytes % Eosinophils % Basophils % PT with INR 12.50 INR 1.11 POC Glucometer Hemoglobin A1c % Free T3 Blood Type Antibody Screen Active Medications Generic Name Dose Route Start Last Admin Trade Name Freq PRN Reason Stop Dose Admin Acetaminophen 1,000 mg 01/24/18 09:18 01/25/18 06:16 Ofirmev Injection - IVPB 1,000 mg Q6H PRN Administration HEADACHE Albuterol Sulfate 1 amp 01/23/18 03:22 Ventolin 0.083% Nebulizer Soln - NEB Q1H PRN SHORT OF BREATH/WHEEZING Albuterol/Ipratropium 1 amp 01/23/18 08:00 01/24/18 16:40 Duoneb - NEB 1 amp RQID KYLIE Administration Chlorhexidine Gluconate 1 applic 01/23/18 22:00 01/24/18 21:40 Hibiclens For Decolonization - TP 1 applic HS KYLIE Administration Dexamethasone Sodium Phosphate 10 mg 01/23/18 18:00 01/25/18 03:20 Decadron Injection - IVPUSH 10 mg Q8H-IV KYLIE Administration Guaifenesin 10 ml 01/23/18 10:57 01/23/18 11:50 Guaifenesin Dm Syrup PO 10 ml Q4H PRN Administration COUGH Hydralazine HCl 10 mg 01/24/18 09:25 01/25/18 07:31 Apresoline Injection - IVPUSH 10 mg Q6H PRN Administration HYPERTENSION Sodium Chloride 1,000 mls @ 42 mls/hr 01/23/18 13:30 01/25/18 07:33 Normal Saline - IV 42 mls/hr ASDIR KYLIE Administration Insulin Aspart 1 vial 01/24/18 16:30 01/25/18 06:08 Novolog Vial Sliding Scale - SQ Not Given ACHS KYLIE Protocol Levothyroxine Sodium 50 mcg 01/25/18 07:00 01/25/18 06:08 Synthroid - PO 50 mcg DAILY@0700 KYLIE Administration Mupirocin 1 applic 01/23/18 22:00 01/24/18 21:42 Bactroban Ointment (For Decolonization) - NS 01/28/18 21:59 1 applic BID KYLIE Administration No micro CXR 01/22 - Right paratracheal soft tissue mass, unchanged since prior chest x- ray the 03/17/2014 that may represent an enlarged retrosternal right thyroid lobe for which correlation with CT scan of the chest or thyroid ultrasound is needed. CHEST CT W CONTRAST 01/23: goiter right sided, 7.7x6.6 cm which significantly displaces and narrows the trachea to the left. R Arm duplex 01/25 - No DVTs noted ASSESSMENT/PLAN: 77 year old female with a PMH of goiter, hypothyroid, htn, who presents for worsening shortness of breath after a viral illness. CT chest notable for large suspected thyroid mass with extrinsic compression of trachea. Plan for transfer to [facility] for thyroidectomy with Dr. Deleon and Dr. Ibanez. #Stridor/respiratory distress secondary to thyromegaly - CT confirmed - Transfer to [facility] for thyroidectomy with Dr. Deleon and Dr. Ibanez; all documentation completed, awaiting bed - Decadron - duonebs qidr - Racemic epi PRN - robitussin dm -pulm following - ENT following -f/u t3/t4; TSH 0.12 - hold synthroid - Endo consulted - Dr. Shresta - O2 support, close monitoring for respiratory compromise; limit all agitation/ manipulation of trachea or thyroid mass given minimal tracheal reserve - Unlikely to tolerate intubation or cricothyroidotomy if unable to maintain airway; Alert anesthesia team emergently if evidence of respiratory failure #HTN -Hold atenolol given bronchospastic component; hold HCTZ as pt on IVFs - hydralazine IV 10mg q6h prn #hypothyroid- - Endo following -Decreased LT4 to 50 qD per week -tsh, t3, t4 #DM2 - hold oral agents - ISS - BGMs PPX Lovenox FEN NS 42cc/hr Daily lytes NPO ICU Plan discussed with Dr. Wesley Silverman, PGY1 Visit type - Emergency Visit Emergency Visit: Yes ED Registration Date: 01/23/18 Care time: The patient presented to the Emergency Department on the above date and was hospitalized for further evaluation of their emergent condition. - New Patient This patient is new to me today: No - Critical Care Critical Care patient: Yes Total Critical Care Time (in minutes): 35 Critical Care Statement: The care of this patient involved high complexity decision making to prevent further life threatening deterioration of the patient 's condition and/or to evaluate & treat vital organ system(s) failure or risk of failure.
[2018-01-25] MEDS: ALBUTEROL SO4 2.5/IPRATROPIUM 0.5 INH SOL 3 ML VIAL.NEB. NEB SCH ×4 (08:54→20:50)
--- NOTE | 2018-01-25 09:24 | PN ---
Progress Note (short form) - Note Progress Note: Being transferred to [facility] for surgery Vital Signs Period Temp Pulse Resp BP Sys/Eduardo Pulse Ox Last 24 Hr 98.1 F-98.4 F 51-98 14-21 128-177/60-116 100 PE: AOx3 Neck: supple, No JVD HEENT: EOMI Lungs: CTA CVS: S1S2 Abd: Bening Ext: No edema Neuor: No focal deficit CMP Sodium 143 mmol/L (136-145) 01/25/18 05:00 Potassium 3.9 mmol/L (3.5-5.1) 01/25/18 05:00 Chloride 106 mmol/L (98-107) 01/25/18 05:00 Carbon Dioxide 30 mmol/L (21-32) 01/25/18 05:00 Anion Gap 7 (8-16) L 01/25/18 05:00 BUN 21 mg/dL (7-18) H 01/25/18 05:00 Creatinine 0.7 mg/dL (0.55-1.02) 01/25/18 05:00 Creat Clearance w eGFR > 60 (>60) 01/25/18 05:00 POC Glucometer 145.83993 UNITS (80-120) 01/24/18 16:30 Random Glucose 129 mg/dL (74-106) H 01/25/18 05:00 Hemoglobin A1c % 6.6 % (4.8-6.0) H 01/24/18 05:32 Calcium 9.1 mg/dL (8.5-10.1) 01/25/18 05:00 Phosphorus 3.8 mg/dL (2.5-4.9) 01/25/18 05:00 Magnesium 2.5 mg/dL (1.8-2.4) H 01/25/18 05:00 Total Bilirubin 0.4 mg/dL (0.2-1.0) 01/25/18 05:00 AST 14 U/L (15-37) L 01/25/18 05:00 ALT 13 U/L (12-78) 01/25/18 05:00 Alkaline Phosphatase 59 U/L (45-117) 01/25/18 05:00 Creatine Kinase 150 IU/L (26-192) 01/22/18 23:30 Creatine Kinase Index 0.9 % (0.0-5.0) 01/22/18 23:30 CK-MB (CK-2) 1.417 ng/mL (0.5-3.6) 01/22/18 23:30 Troponin I < 0.02 ng/ml (0.00-0.05) 01/22/18 23:30 B-Natriuretic Peptide 171.78 pg/ml (5-450) 01/22/18 23:30 Total Protein 7.0 g/dl (6.4-8.2) 01/25/18 05:00 Albumin 3.4 g/dl (3.4-5.0) 01/25/18 05:00 Free T4 [place] 1.17 ng/dL (0.82-1.77) 01/23/18 05:50 TSH 0.12 uIU/ml (0.358-3.74) L 01/23/18 05:50 Free T3 3.2 pg/ml (2.0-4.4) 01/23/18 05:50 Current Medications Generic Name Dose Route Start Last Admin Trade Name Freq PRN Reason Stop Dose Admin Acetaminophen 1,000 mg 01/24/18 09:18 01/25/18 06:16 Ofirmev Injection - IVPB 1,000 mg Q6H PRN Administration HEADACHE Albuterol Sulfate 1 amp 01/23/18 03:22 Ventolin 0.083% Nebulizer Soln - NEB Q1H PRN SHORT OF BREATH/WHEEZING Albuterol/Ipratropium 1 amp 01/23/18 08:00 01/25/18 08:54 Duoneb - NEB 1 amp RQID KYLIE Administration Chlorhexidine Gluconate 1 applic 01/23/18 22:00 01/24/18 21:40 Hibiclens For Decolonization - TP 1 applic HS KYLIE Administration Dexamethasone Sodium Phosphate 10 mg 01/23/18 18:00 01/25/18 09:12 Decadron Injection - IVPUSH 10 mg Q8H-IV KYLIE Administration Enoxaparin Sodium 40 mg 01/25/18 10:00 Lovenox - SQ DAILY KYLIE Guaifenesin 10 ml 01/23/18 10:57 01/23/18 11:50 Guaifenesin Dm Syrup PO 10 ml Q4H PRN Administration COUGH Hydralazine HCl 10 mg 01/24/18 09:25 01/25/18 07:31 Apresoline Injection - IVPUSH 10 mg Q6H PRN Administration HYPERTENSION Insulin Aspart 1 vial 01/24/18 16:30 01/25/18 06:08 Novolog Vial Sliding Scale - SQ Not Given ACHS [facility] Protocol Levothyroxine Sodium 50 mcg 01/25/18 07:00 01/25/18 06:08 Synthroid - PO 50 mcg DAILY@0700 KYLIE Administration Mupirocin 1 applic 01/23/18 22:00 01/24/18 21:42 Bactroban Ointment (For Decolonization) - NS 01/28/18 21:59 1 applic BID KYLIE Administration AP: Acute Respiratory Distress likely from 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 Hypothyroidism HTN T2DM Nonobstructive CAD Awaiting transfer to [facility] for Thyroidectomy TSH 0.12 which indicates pt is being over supplemented with LT4 Decrease dose to LT4 50 Qd 6 days per week continue Dexamethasone PRN inhaled bronchodilators BGM QACHS Novolog coverage Expect blood sugar to rise as she is on steroids Scheduled for possble biopsy today and surgery tomorrow Will F/U Problem List - Problems (1) SOB (shortness of breath) Code(s): R06.02 - SHORTNESS OF BREATH (2) Thyroid mass Code(s): E07.9 - DISORDER OF THYROID, UNSPECIFIED (3) Tracheal compression Code(s): J98.8 - OTHER SPECIFIED RESPIRATORY DISORDERS
--- NOTE | 2018-01-25 09:34 | PN ---
Progress Note (short form) - Note Progress Note: Patient seen and examined. CT scan reviewed. 77 y/o woman with longstanding thyroid goiter with increasing shortness of breath over the last week became severe on Sunday and came to the ER. No significant dysphagia or change in voice. On CT scan found to large intrathoracic goiter with tracheal compression. Admitted to the ICU for oxygen therapy and observation. Breathing well now and tolerating oral diet. PMH: Hypertension. PSH: hysterectomy. SH: no cigarettes, occasional alcohol. On examination elderly woman in no distress. Neck has no palpable mass. Right lower neck/upper chest scar (from bee sting and subsequent scar revision) CT scan: large right intrathoracic goiter with tracheal compression. A/P: Requires median sternotomy for goiter resection. Will transfer to [facility] for further work up and surgery.
[2018-01-25] MEDS ORDERED: ENOXAPARIN NA (PORCINE) 40 MG/0.4 ML DISP.SYRIN SQ SCH (10:00)
[2018-01-25] MEDS: MUPIROCIN 2% TOPICAL OINTMENT FOR DECOLONIZATION NS SCH ×2 (10:41→21:14)
[2018-01-25] MEDS ORDERED: HEMOQUE TEST 1 EACH EACH ONE (10:44)
--- NOTE | 2018-01-25 11:22 | PN ---
Teaching Attending Note Name of Resident: Wiley Weber ATTENDING PHYSICIAN STATEMENT I saw and evaluated the patient. I reviewed the resident's note and discussed the case with the resident. I agree with the resident's findings and plan as documented. SUBJECTIVE: Patient seen and examined in the ICU. Reports breathing feels stable at present. No CP or SOB. Some mild nonproductive cough and occasional wheezing. D/W surgery, due to airway compromise and complicated thyroid mass, will be transferred to [facility]. OBJECTIVE: Intake & Output 01/22/18 01/23/18 01/24/18 01/25/18 23:59 23:59 23:59 23:59 Intake Total 1279.7 604 Output Total 100 Balance 1279.7 504 Weight 184 lb 184 lb 185 lb 3 oz Last Vital Signs Temp Pulse Resp BP Pulse Ox 98.6 F 56 L 20 168/71 100 01/25/18 10:00 01/25/18 10:00 01/25/18 10:00 01/25/18 10:00 01/25/18 07:12 Active Medications Acetaminophen (Ofirmev Injection -) 1,000 mg IVPB Q6H PRN PRN Reason: HEADACHE Last Admin: 01/25/18 06:16 Dose: 1,000 mg Albuterol Sulfate (Ventolin 0.083% Nebulizer Soln -) 1 amp NEB Q1H PRN PRN Reason: SHORT OF BREATH/WHEEZING Albuterol/Ipratropium (Duoneb -) 1 amp NEB RQID KYLIE Last Admin: 01/25/18 08:54 Dose: 1 amp Chlorhexidine Gluconate (Hibiclens For Decolonization -) 1 applic TP HS KYLIE Last Admin: 01/24/18 21:40 Dose: 1 applic Dexamethasone Sodium Phosphate (Decadron Injection -) 10 mg IVPUSH Q8H-IV KYLIE Last Admin: 01/25/18 09:12 Dose: 10 mg Enoxaparin Sodium (Lovenox -) 40 mg SQ DAILY KYLIE Last Admin: 01/25/18 10:48 Dose: 40 mg Guaifenesin (Guaifenesin Dm Syrup) 10 ml PO Q4H PRN PRN Reason: COUGH Last Admin: 01/23/18 11:50 Dose: 10 ml Hydralazine HCl (Apresoline Injection -) 10 mg IVPUSH Q6H PRN PRN Reason: HYPERTENSION Last Admin: 01/25/18 07:31 Dose: 10 mg Insulin Aspart (Novolog Vial Sliding Scale -) 1 vial SQ ACHS KYLIE PRN Reason: Protocol Last Admin: 01/25/18 10:46 Dose: 4 units Levothyroxine Sodium (Synthroid -) 50 mcg PO DAILY@0700 [facility] Last Admin: 01/25/18 06:08 Dose: 50 mcg Mupirocin (Bactroban Ointment (For Decolonization) -) 1 applic NS BID KYLIE Stop: 01/28/18 21:59 Last Admin: 01/25/18 10:41 Dose: 1 applic Gen: Awake and alert, NAD Neck: Inspiratory stridor Heart: RRR Lung: (+) fixed wheeze: substernal Abd: soft, nontender Ext: no edema Laboratory Results - last 24 hr 01/23/18 01/23/18 01/24/18 05:50 17:06 12:14 WBC RBC Hgb Hct MCV MCH MCHC RDW Plt Count MPV Neutrophils % Lymphocytes % Monocytes % Eosinophils % Basophils % PT with INR INR Sodium Potassium Chloride Carbon Dioxide Anion Gap BUN Creatinine Creat Clearance w eGFR POC Glucometer 190.70206 186.17951 Random Glucose Calcium Phosphorus Magnesium Total Bilirubin AST ALT Alkaline Phosphatase Total Protein Albumin Free T3 3.2 Blood Type Antibody Screen 01/24/18 01/24/18 01/24/18 16:30 21:18 21:45 WBC RBC Hgb Hct MCV MCH MCHC RDW Plt Count MPV Neutrophils % Lymphocytes % Monocytes % Eosinophils % Basophils % PT with INR INR Sodium Potassium Chloride Carbon Dioxide Anion Gap BUN Creatinine Creat Clearance w eGFR POC Glucometer 145.59213 182.89522 Random Glucose Calcium Phosphorus Magnesium Total Bilirubin AST ALT Alkaline Phosphatase Total Protein Albumin Free T3 Blood Type O POSITIVE Antibody Screen Negative 01/25/18 01/25/18 01/25/18 05:00 05:00 05:00 WBC 15.1 H RBC 4.02 Hgb 11.9 Hct 33.9 MCV 84.2 MCH 29.5 MCHC 35.0 RDW 13.5 Plt Count 202 MPV 10.3 Neutrophils % 88.6 H Lymphocytes % 7.1 L Monocytes % 4.2 Eosinophils % 0.0 Basophils % 0.1 PT with INR 12.50 INR 1.11 Sodium 143 Potassium 3.9 Chloride 106 Carbon Dioxide 30 Anion Gap 7 L BUN 21 H Creatinine 0.7 Creat Clearance w eGFR > 60 POC Glucometer Random Glucose 129 H Calcium 9.1 Phosphorus 3.8 Magnesium 2.5 H Total Bilirubin 0.4 AST 14 L ALT 13 Alkaline Phosphatase 59 Total Protein 7.0 Albumin 3.4 Free T3 Blood Type Antibody Screen 01/25/18 01/25/18 05:00 05:56 WBC RBC Hgb Hct MCV MCH MCHC RDW Plt Count MPV Neutrophils % Lymphocytes % Monocytes % Eosinophils % Basophils % PT with INR INR Sodium Potassium Chloride Carbon Dioxide Anion Gap BUN Creatinine Creat Clearance w eGFR POC Glucometer 148.92156 Random Glucose Calcium Phosphorus Magnesium Total Bilirubin AST ALT Alkaline Phosphatase Total Protein Albumin Free T3 Blood Type O POSITIVE Antibody Screen Negative ASSESSMENT AND PLAN: Acute Respiratory Distress due to 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
--- NOTE | 2018-01-25 11:24 | PN ---
Physical Exam: SUBJECTIVE: Patient seen and examined in ICU. No acute events overnight. Patient reports stable sore throat, says that it is worse when she speaks. Denies chest pain, fever. OBJECTIVE: Vital Signs Period Temp Pulse Resp BP Sys/Eduardo Pulse Ox Last 24 Hr 98.1 F-98.6 F 51-98 15-21 128-177/60-116 100 GENERAL: The patient is awake, alert, and fully oriented, in no acute distress. HEAD: Normal with no signs of trauma. EYES: PERRL, extraocular movements intact, sclera anicteric, conjunctiva clear. NECK: Large goiter LUNGS: Breath sounds equal, clear to auscultation bilaterally, no accessory muscle use, stridor with sharp inspiration HEART: Regular rate and rhythm, S1, S2 without murmur, rub or gallop. ABDOMEN: Soft, nontender, nondistended, normoactive bowel sounds, no guarding, no rebound, no hepatosplenomegaly, no masses. EXTREMITIES: 2+ pulses, warm, well-perfused, no edema. NEUROLOGICAL: Cranial nerves II through XII grossly intact. Normal speech, gait not observed. Laboratory Results - last 24 hr 01/23/18 01/23/18 01/24/18 05:50 17:06 12:14 WBC RBC Hgb Hct MCV MCH MCHC RDW Plt Count MPV Neutrophils % Lymphocytes % Monocytes % Eosinophils % Basophils % PT with INR INR Sodium Potassium Chloride Carbon Dioxide Anion Gap BUN Creatinine Creat Clearance w eGFR POC Glucometer 190.30324 186.05830 Random Glucose Calcium Phosphorus Magnesium Total Bilirubin AST ALT Alkaline Phosphatase Total Protein Albumin Free T3 3.2 Blood Type Antibody Screen 01/24/18 01/24/18 01/24/18 16:30 21:18 21:45 WBC RBC Hgb Hct MCV MCH MCHC RDW Plt Count MPV Neutrophils % Lymphocytes % Monocytes % Eosinophils % Basophils % PT with INR INR Sodium Potassium Chloride Carbon Dioxide Anion Gap BUN Creatinine Creat Clearance w eGFR POC Glucometer 145.23529 182.27281 Random Glucose Calcium Phosphorus Magnesium Total Bilirubin AST ALT Alkaline Phosphatase Total Protein Albumin Free T3 Blood Type O POSITIVE Antibody Screen Negative 01/25/18 01/25/18 01/25/18 05:00 05:00 05:00 WBC 15.1 H RBC 4.02 Hgb 11.9 Hct 33.9 MCV 84.2 MCH 29.5 MCHC 35.0 RDW 13.5 Plt Count 202 MPV 10.3 Neutrophils % 88.6 H Lymphocytes % 7.1 L Monocytes % 4.2 Eosinophils % 0.0 Basophils % 0.1 PT with INR 12.50 INR 1.11 Sodium 143 Potassium 3.9 Chloride 106 Carbon Dioxide 30 Anion Gap 7 L BUN 21 H Creatinine 0.7 Creat Clearance w eGFR > 60 POC Glucometer Random Glucose 129 H Calcium 9.1 Phosphorus 3.8 Magnesium 2.5 H Total Bilirubin 0.4 AST 14 L ALT 13 Alkaline Phosphatase 59 Total Protein 7.0 Albumin 3.4 Free T3 Blood Type Antibody Screen 01/25/18 01/25/18 05:00 05:56 WBC RBC Hgb Hct MCV MCH MCHC RDW Plt Count MPV Neutrophils % Lymphocytes % Monocytes % Eosinophils % Basophils % PT with INR INR Sodium Potassium Chloride Carbon Dioxide Anion Gap BUN Creatinine Creat Clearance w eGFR POC Glucometer 148.25827 Random Glucose Calcium Phosphorus Magnesium Total Bilirubin AST ALT Alkaline Phosphatase Total Protein Albumin Free T3 Blood Type O POSITIVE Antibody Screen Negative Active Medications Generic Name Dose Route Start Last Admin Trade Name Freq PRN Reason Stop Dose Admin Acetaminophen 1,000 mg 01/24/18 09:18 01/25/18 06:16 Ofirmev Injection - IVPB 1,000 mg Q6H PRN Administration HEADACHE Albuterol Sulfate 1 amp 01/23/18 03:22 Ventolin 0.083% Nebulizer Soln - NEB Q1H PRN SHORT OF BREATH/WHEEZING Albuterol/Ipratropium 1 amp 01/23/18 08:00 01/25/18 08:54 Duoneb - NEB 1 amp RQID KYLIE Administration Chlorhexidine Gluconate 1 applic 01/23/18 22:00 01/24/18 21:40 Hibiclens For Decolonization - TP 1 applic HS KYLIE Administration Dexamethasone Sodium Phosphate 10 mg 01/23/18 18:00 01/25/18 09:12 Decadron Injection - IVPUSH 10 mg Q8H-IV KYLIE Administration Enoxaparin Sodium 40 mg 01/25/18 10:00 01/25/18 10:48 Lovenox - SQ 40 mg DAILY KYLIE Administration Guaifenesin 10 ml 01/23/18 10:57 01/23/18 11:50 Guaifenesin Dm Syrup PO 10 ml Q4H PRN Administration COUGH Hydralazine HCl 10 mg 01/24/18 09:25 01/25/18 07:31 Apresoline Injection - IVPUSH 10 mg Q6H PRN Administration HYPERTENSION Insulin Aspart 1 vial 01/24/18 16:30 01/25/18 10:46 Novolog Vial Sliding Scale - SQ 4 units ACHS KYLIE Administration Protocol Levothyroxine Sodium 50 mcg 01/25/18 07:00 01/25/18 06:08 Synthroid - PO 50 mcg DAILY@0700 KYLIE Administration Mupirocin 1 applic 01/23/18 22:00 01/25/18 10:41 Bactroban Ointment (For Decolonization) - NS 01/28/18 21:59 1 applic BID KYLIE Administration ASSESSMENT/PLAN: 77F with history of DM, goiter, CAD, HTN, seizures here today with threatened airway. Evaluated by ENT and head/neck surgery. Will do operation sunday. Will monitor in ICU for possible airway emergency. Respiratory #Tracheal compression secondary to goiter - Dexamethasone 10mg q8 to reduce inflammation - NPO - Racemic epinephrine bedside - ICU monitoring - Patient will be transferred to [facility] per Dr Ibanez due to mass extending into chest #SOB w/ scattered wheezing - Albuterol, duonebs PRN #Cough - Guafenesin/Dextromorphan PRN Endocrine #Goiter - TSH 0.12, T4 normal, T3 normal - Endocrinology consulted, will follow reqs - ISS FEN/GI -Replete lytes as necessary -NPO -Lovenox DVT prophylaxis Dispo- continued ICU airway monitoring Visit type - Emergency Visit Emergency Visit: Yes ED Registration Date: 01/23/18 Care time: The patient presented to the Emergency Department on the above date and was hospitalized for further evaluation of their emergent condition. - New Patient This patient is new to me today: No - Critical Care Critical Care patient: Yes Total Critical Care Time (in minutes): 35 Critical Care Statement: The care of this patient involved high complexity decision making to prevent further life threatening deterioration of the patient 's condition and/or to evaluate & treat vital organ system(s) failure or risk of failure.
--- NOTE | 2018-01-25 13:14 | PN ---
Teaching Attending Note Name of Resident: Homar Silverman ATTENDING PHYSICIAN STATEMENT I saw and evaluated the patient. I reviewed the resident's note and discussed the case with the resident. I agree with the resident's findings and plan as documented with exceptions below. SUBJECTIVE: patient seen and examined. breathing overall stable, no new concerns. Tolerating clears well OBJECTIVE: Vital Signs Period Temp Pulse Resp BP Sys/Eduardo Pulse Ox Last 24 Hr 98.1 F-98.6 F 51-95 15-21 128-177/60-86 100 Intake & Output 01/22/18 01/23/18 01/24/18 01/25/18 23:59 23:59 23:59 23:59 Intake Total 1279.7 604 Output Total 100 Balance 1279.7 504 Weight 184 lb 184 lb 185 lb 3 oz general: sitting in bed, mild use of acessory muscles Chest: positive stridor. No expiratory wheezing appreciated Home Medication List Medication Instructions Recorded Confirmed Type Aspirin [Aspirin EC] 81 mg PO DAILY 01/22/18 01/22/18 History Atenolol [Tenormin -] 100 mg PO DAILY 01/22/18 01/22/18 History Cholecalciferol (Vitamin D3) 200 unit PO DAILY 01/22/18 01/22/18 History [Vitamin D3 -] Hydrochlorothiazide [Hctz -] 25 mg PO DAILY 01/22/18 01/22/18 History Levothyroxine [Synthroid -] 50 mcg PO DAILY 01/22/18 01/22/18 History Amlodipine Besylate 10 mg PO DAILY 01/23/18 History Glipizide [Glipizide ER] 2.5 mg PO DAILY 01/24/18 01/24/18 History Active Medications Generic Name Dose Route Start Last Admin Trade Name Freq PRN Reason Stop Dose Admin Acetaminophen 1,000 mg 01/24/18 09:18 01/25/18 06:16 Ofirmev Injection - IVPB 1,000 mg Q6H PRN Administration HEADACHE Albuterol Sulfate 1 amp 01/23/18 03:22 Ventolin 0.083% Nebulizer Soln - NEB Q1H PRN SHORT OF BREATH/WHEEZING Albuterol/Ipratropium 1 amp 01/23/18 08:00 01/25/18 12:25 Duoneb - NEB 1 amp RQID KYLIE Administration Chlorhexidine Gluconate 1 applic 01/23/18 22:00 01/24/18 21:40 Hibiclens For Decolonization - TP 1 applic HS KYLIE Administration Dexamethasone Sodium Phosphate 10 mg 01/23/18 18:00 01/25/18 09:12 Decadron Injection - IVPUSH 10 mg Q8H-IV KYLIE Administration Enoxaparin Sodium 40 mg 01/25/18 10:00 01/25/18 10:48 Lovenox - SQ 40 mg DAILY KYLIE Administration Guaifenesin 10 ml 01/23/18 10:57 01/23/18 11:50 Guaifenesin Dm Syrup PO 10 ml Q4H PRN Administration COUGH Hydralazine HCl 10 mg 01/24/18 09:25 01/25/18 07:31 Apresoline Injection - IVPUSH 10 mg Q6H PRN Administration HYPERTENSION Insulin Aspart 1 vial 01/24/18 16:30 01/25/18 10:46 Novolog Vial Sliding Scale - SQ 4 units ACHS KYLIE Administration Protocol Levothyroxine Sodium 50 mcg 01/25/18 07:00 01/25/18 06:08 Synthroid - PO 50 mcg DAILY@0700 KYLIE Administration Mupirocin 1 applic 01/23/18 22:00 01/25/18 10:41 Bactroban Ointment (For Decolonization) - NS 01/28/18 21:59 1 applic BID KYLIE Administration Laboratory Results - last 24 hr 01/23/18 01/24/18 01/24/18 05:50 16:30 21:18 WBC RBC Hgb Hct MCV MCH MCHC RDW Plt Count MPV Neutrophils % Lymphocytes % Monocytes % Eosinophils % Basophils % PT with INR INR Sodium Potassium Chloride Carbon Dioxide Anion Gap BUN Creatinine Creat Clearance w eGFR POC Glucometer 145.71491 182.73372 Random Glucose Calcium Phosphorus Magnesium Total Bilirubin AST ALT Alkaline Phosphatase Total Protein Albumin Free T3 3.2 Blood Type Antibody Screen 01/24/18 01/25/18 01/25/18 21:45 05:00 05:00 WBC 15.1 H RBC 4.02 Hgb 11.9 Hct 33.9 MCV 84.2 MCH 29.5 MCHC 35.0 RDW 13.5 Plt Count 202 MPV 10.3 Neutrophils % 88.6 H Lymphocytes % 7.1 L Monocytes % 4.2 Eosinophils % 0.0 Basophils % 0.1 PT with INR 12.50 INR 1.11 Sodium Potassium Chloride Carbon Dioxide Anion Gap BUN Creatinine Creat Clearance w eGFR POC Glucometer Random Glucose Calcium Phosphorus Magnesium Total Bilirubin AST ALT Alkaline Phosphatase Total Protein Albumin Free T3 Blood Type O POSITIVE Antibody Screen Negative 01/25/18 01/25/18 01/25/18 05:00 05:00 05:56 WBC RBC Hgb Hct MCV MCH MCHC RDW Plt Count MPV Neutrophils % Lymphocytes % Monocytes % Eosinophils % Basophils % PT with INR INR Sodium 143 Potassium 3.9 Chloride 106 Carbon Dioxide 30 Anion Gap 7 L BUN 21 H Creatinine 0.7 Creat Clearance w eGFR > 60 POC Glucometer 148.20566 Random Glucose 129 H Calcium 9.1 Phosphorus 3.8 Magnesium 2.5 H Total Bilirubin 0.4 AST 14 L ALT 13 Alkaline Phosphatase 59 Total Protein 7.0 Albumin 3.4 Free T3 Blood Type O POSITIVE Antibody Screen Negative ASSESSMENT AND PLAN: 77 yof with PMHx of HTN, DM, hypothyroidism, known thyroid masses, admitted with shortness of breath, markedly enlarged right thyroid gland with extrinsic tracheal compression and impending respiratory failure. -Shortness of breath/Impending respiratory failure from substernal goiter with extrinsic tracheal compression likely decompensated by URI like illness vs acute bronchospastic disease -Hypothyroidism -HTN -HYperglycemia, ?Steroid induced vs new onset diabetic -Leucocytosis suspect steroid induced demargination Plan: Discussed with Dr. Bustos, plan for transfer to [facility] for surgical intervention as will need sternotomy. Continue decadron, nebs, close monitoring of respiratory status. Clears, monitor closely. HOld atenolol given concern for bronchospastic component, hold HCTZ while on gentle hydration given NPO. Hydralazine prn if persistently hypertensive. BGM, ISS, A1c noted.Hold oral hypoglycemics. Thyroid panel noted. Levothyroxine decreased to 50 mg daily. Endocrine input noted. Lovenox for DVTPPX dispo pending transfer to [facility] for further care. Plan discussed with patient in detail, all questions answered.
[2018-01-25] MEDS ORDERED: SODIUM CHLORIDE 1,000 ML IV SCH (17:15)
[2018-01-25] MEDS: CHLORHEXIDINE GLUCONATE 4% CLEANSER FOR DECOLONIZATION TP SCH (21:14)
[2018-01-26] MEDS: DEXAMETHASONE SOD PHOSPHATE 10 MG/1 ML VIAL IVPUSH SCH (03:01)
[2018-01-26 05:55] LABS: BASO % 0.1 % (0-2.0); HEMATOCRIT 32.2 % (32.4-45.2); HEMOGLOBIN 11.4 GM/dL (10.7-15.3); LYMPH % 9.4 % (8-40); MCH 29.6 pg (25.7-33.7); MCHC 35.3 g/dl (32.0-36.0); MEAN CELL VOLUME 83.9 fl (80-96); MONO % 4.8 % (3.8-10.2); NEUT % 85.7 % (42.8-82.8); PLATELET COUNT 189 K/MM3 (134-434); RBC 3.84 M/mm3 (3.60-5.2); RDW 13.7 % (11.6-15.6); WHITE BLOOD COUNT 11.3 K/mm3 (4.0-10.0)
[2018-01-26] MEDS: INSULIN SLIDING SCALE (NOVOLOG) 1 VIAL SQ SCH (06:16)
[2018-01-26 06:20] LABS: CHLORIDE 111 mmol/L (98-107); POTASSIUM 4.1 mmol/L (3.5-5.1); SODIUM 145 mmol/L (136-145)
[2018-01-26 06:27] LABS: ANION GAP 4 (8-16); BLOOD UREA NITROGEN 20 mg/dL (7-18); CALCIUM 8.6 mg/dL (8.5-10.1); CO2 30 mmol/L (21-32); CREATININE 0.7 mg/dL (0.55-1.02); GLUCOSE,RANDOM 137 mg/dL (74-106)
[2018-01-26] MEDS: LEVOTHYROXINE NA 50 MCG TABLET (FP) PO SCH (06:29)
[2018-01-26] MEDS: hydrALAZINE HCL 20 MG/ML VIAL IVPUSH PRN ×2 (06:40→08:00)
--- NOTE | 2018-01-26 08:01 | PN ---
Physical Exam: SUBJECTIVE: Patient seen and examined OBJECTIVE: Vital Signs Period Temp Pulse Resp BP Sys/Eduardo Pulse Ox Last 24 Hr 98.2 F-98.6 F 54-96 12-22 114-189/56-96 100 GENERAL: The patient is awake, alert, and fully oriented, in no acute distress. HEAD: Normal with no signs of trauma. EYES: PERRL, extraocular movements intact, sclera anicteric, conjunctiva clear. No ptosis. ENT: Ears normal, nares patent, oropharynx clear without exudates, moist mucous membranes. NECK: Trachea midline, full range of motion, supple. LUNGS: Breath sounds equal, clear to auscultation bilaterally, no wheezes, no crackles, no accessory muscle use. HEART: Regular rate and rhythm, S1, S2 without murmur, rub or gallop. ABDOMEN: Soft, nontender, nondistended, normoactive bowel sounds, no guarding, no rebound, no hepatosplenomegaly, no masses. EXTREMITIES: 2+ pulses, warm, well-perfused, no edema. NEUROLOGICAL: Cranial nerves II through XII grossly intact. Normal speech, gait not observed. PSYCH: Normal mood, normal affect. SKIN: Warm, dry, normal turgor, no rashes or lesions noted Laboratory Results - last 24 hr 01/24/18 01/25/18 01/25/18 21:18 05:00 05:00 WBC RBC Hgb Hct MCV MCH MCHC RDW Plt Count MPV Neutrophils % Lymphocytes % Monocytes % Eosinophils % Basophils % Sodium 143 Potassium 3.9 Chloride 106 Carbon Dioxide 30 Anion Gap 7 L BUN 21 H Creatinine 0.7 Creat Clearance w eGFR > 60 POC Glucometer [phone] Random Glucose 129 H Calcium 9.1 Phosphorus 3.8 Magnesium 2.5 H Total Bilirubin 0.4 AST 14 L ALT 13 Alkaline Phosphatase 59 Total Protein 7.0 Albumin 3.4 Blood Type O POSITIVE Antibody Screen Negative 01/25/18 01/25/18 01/26/18 05:56 21:11 05:16 WBC 11.3 H RBC 3.84 Hgb 11.4 Hct 32.2 L MCV 83.9 MCH 29.6 MCHC 35.3 RDW 13.7 Plt Count 189 MPV 10.0 Neutrophils % 85.7 H Lymphocytes % 9.4 D Monocytes % 4.8 Eosinophils % 0.0 Basophils % 0.1 Sodium Potassium Chloride Carbon Dioxide Anion Gap BUN Creatinine Creat Clearance w eGFR POC Glucometer 148.54465 164.79469 Random Glucose Calcium Phosphorus Magnesium Total Bilirubin AST ALT Alkaline Phosphatase Total Protein Albumin Blood Type Antibody Screen 01/26/18 01/26/18 05:16 06:37 WBC RBC Hgb Hct MCV MCH MCHC RDW Plt Count MPV Neutrophils % Lymphocytes % Monocytes % Eosinophils % Basophils % Sodium 145 Potassium 4.1 Chloride 111 H Carbon Dioxide 30 Anion Gap 4 L BUN 20 H Creatinine 0.7 Creat Clearance w eGFR POC Glucometer 158.72289 Random Glucose 137 H Calcium 8.6 Phosphorus Magnesium Total Bilirubin AST ALT Alkaline Phosphatase Total Protein Albumin Blood Type Antibody Screen Active Medications Generic Name Dose Route Start Last Admin Trade Name Freq PRN Reason Stop Dose Admin Acetaminophen 1,000 mg 01/24/18 09:18 01/25/18 06:16 Ofirmev Injection - IVPB 1,000 mg Q6H PRN Administration HEADACHE Albuterol Sulfate 1 amp 01/23/18 03:22 Ventolin 0.083% Nebulizer Soln - NEB Q1H PRN SHORT OF BREATH/WHEEZING Albuterol/Ipratropium 1 amp 01/23/18 08:00 01/25/18 20:50 Duoneb - NEB 1 amp RQID KYLIE Administration Chlorhexidine Gluconate 1 applic 01/23/18 22:00 01/25/18 21:14 Hibiclens For Decolonization - TP 1 applic HS KYLIE Administration Dexamethasone Sodium Phosphate 10 mg 01/23/18 18:00 01/26/18 03:01 Decadron Injection - IVPUSH 10 mg Q8H-IV KYLIE Administration Enoxaparin Sodium 40 mg 01/25/18 10:00 01/25/18 10:48 Lovenox - SQ 40 mg DAILY KYLIE Administration Guaifenesin 10 ml 01/23/18 10:57 01/23/18 11:50 Guaifenesin Dm Syrup PO 10 ml Q4H PRN Administration COUGH Hydralazine HCl 10 mg 01/24/18 09:25 01/26/18 06:40 Apresoline Injection - IVPUSH 10 mg Q6H PRN Administration HYPERTENSION Sodium Chloride 1,000 mls @ 42 mls/hr 01/25/18 17:15 01/25/18 17:20 Normal Saline - IV 42 mls/hr ASDIR KYLIE Administration Insulin Aspart 1 vial 01/24/18 16:30 01/26/18 06:16 Novolog Vial Sliding Scale - SQ Not Given ACHS [facility] Protocol Levothyroxine Sodium 50 mcg 01/25/18 07:00 01/26/18 06:29 Synthroid - PO 50 mcg DAILY@0700 [facility] Administration Mupirocin 1 applic 01/23/18 22:00 01/25/18 21:14 Bactroban Ointment (For Decolonization) - NS 01/28/18 21:59 1 applic BID [facility] Administration ASSESSMENT/PLAN:
[2018-01-26] MEDS: ALBUTEROL SO4 2.5/IPRATROPIUM 0.5 INH SOL 3 ML VIAL.NEB. NEB SCH (08:28)
[2018-01-26 08:30] VITALS: BP 177/82; PULSE 99; TEMP 98.4
--- NOTE | 2018-01-26 08:37 | DS ---
Physical Exam: SUBJECTIVE: Patient seen and examined, breathing overall unchanged. On her way to [facility]. No other complaints. OBJECTIVE: Vital Signs Period Temp Pulse Resp BP Sys/Eduardo Pulse Ox Last 24 Hr 98.2 F-98.6 F 54-100 12-22 114-189/56-96 100 PHYSICAL EXAM GENERAL: The patient is awake, alert, and fully oriented, mild stridor, talking in full sentences HEAD: Normal with no signs of trauma. EYES: PERRL, extraocular movements intact, sclera anicteric, conjunctiva clear. HEENT: Limited evaluation, no discharge or erythema noted NECK: submandibular swelling extending down the neck LUNGS: positive stridor, no lower air way wheezing HEART:S1S2 regular ABDOMEN: Soft, nontender, nondistended, normoactive bowel sounds, no guarding, no rebound EXTREMITIES: 2+ pulses, warm, well-perfused, no edema. NEUROLOGICAL: Cranial nerves II through XII grossly intact. PSYCH: Normal mood, normal affect. SKIN: Warm, dry, normal turgor, no rashes or lesions noted. LABS Laboratory Results - last 24 hr 01/24/18 01/25/18 01/25/18 21:18 05:00 05:56 WBC RBC Hgb Hct MCV MCH MCHC RDW Plt Count MPV Neutrophils % Lymphocytes % Monocytes % Eosinophils % Basophils % Sodium Potassium Chloride Carbon Dioxide Anion Gap BUN Creatinine POC Glucometer [phone] Random Glucose Calcium Antibody Screen Negative 01/25/18 01/26/18 01/26/18 21:11 05:16 05:16 WBC 11.3 H RBC 3.84 Hgb 11.4 Hct 32.2 L MCV 83.9 MCH 29.6 MCHC 35.3 RDW 13.7 Plt Count 189 MPV 10.0 Neutrophils % 85.7 H Lymphocytes % 9.4 D Monocytes % 4.8 Eosinophils % 0.0 Basophils % 0.1 Sodium 145 Potassium 4.1 Chloride 111 H Carbon Dioxide 30 Anion Gap 4 L BUN 20 H Creatinine 0.7 POC Glucometer 164.59445 Random Glucose 137 H Calcium 8.6 Antibody Screen 01/26/18 06:37 WBC RBC Hgb Hct MCV MCH MCHC RDW Plt Count MPV Neutrophils % Lymphocytes % Monocytes % Eosinophils % Basophils % Sodium Potassium Chloride Carbon Dioxide Anion Gap BUN Creatinine POC Glucometer 158.09775 Random Glucose Calcium Antibody Screen CT chest -Sequential axial images were obtained from the thoracic inlet through the domes of the diaphragm following the administration of intravenous contrast material. Examination of the mediastinum demonstrates a markedly enlarged right lobe of the thyroid gland which extends into the right paratracheal portion of the mediastinum. The left lobe measures approximately 7.4 x 6.4 x 10.9 cm. It does contain calcification and hypodense areas consistent with necrosis. This does correspond to the abnormality noted on a recent plain film chest radiograph. The left lobe of the thyroid gland is also enlarged, but significantly smaller. There is no evidence of additional mediastinal masses, fluid collections or significant lymphadenopathy. The heart is not enlarged. The lung kent are free of pulmonary masses, areas of acute consolidation or pleural effusions. There are mild atelectatic changes within the left lower lobe. Evaluation of the upper abdomen demonstrates no acute abnormalities. There is evidence for diffuse fatty infiltration of the liver. There is no evidence of acute bony pathology. IMPRESSION: 1. Markedly enlarged right lobe of the thyroid gland which does account for the right paratracheal mass on plain film chest radiography. 2. No acute pathology within the chest. Please see above discussion. HOSPITAL COURSE: Date of Admission:01/23/18 Date of Discharge: 01/26/18 Minutes to complete discharge: 40 Discharge Summary Reason For Visit: SHORTNESS OF BREATH/THYROID LUMP Current Active Problems SOB (shortness of breath) (Acute) Thyroid mass (Acute) Hospital Course: Patient was placed on iv decadron, nebs and oxygen supplementation. She was evaluated by Pulmonary, ENT, Endocrine and Surgery Dr. Bustos. She was closely monitored in the ICU. Her respiratory status continued to stay stable. She was seen by endocrine and her levothyroxine is currently advised at 50 mcg daily. Her oral hypoglycemics were held. Also Anti-hypertensives atenolol and HCTZ were held. She was continued on gentle hydration and hydralazine as needed for BP control. She had elevated SBP 170-180s likely from holding her antihypertensives, anxiety and respiratory distress. She has been arranged for transfer to [facility] by Dr. Bustos for surgical plans to be co-ordinated with thoracic surgery. Her respiratory status currently stable and unchanged. Condition: Improved - Instructions Diet, Activity, Other Instructions: You were found with large thyroid mass that is encroaching your trachea and extending into the chest. You were evaluated by surgeon and are arranged for transfer to [facility] for surgery. You are continued on steroids, breathing treatments and have been monitored closely in the ICU. You are advised to continue medications that were continued in the hospital. Your home medications prior to coming to the hospital as below: Home Medication List Medication Instructions Recorded Confirmed Type Aspirin [Aspirin EC] 81 mg PO DAILY 01/22/18 01/22/18 History Atenolol [Tenormin -] 100 mg PO DAILY 01/22/18 01/22/18 History Cholecalciferol (Vitamin D3) 200 unit PO DAILY 01/22/18 01/22/18 History [Vitamin D3 -] Hydrochlorothiazide [Hctz -] 25 mg PO DAILY 01/22/18 01/22/18 History Levothyroxine [Synthroid -] 50 mcg PO DAILY 01/22/18 01/22/18 History Amlodipine Besylate 10 mg PO DAILY 01/23/18 History Glipizide [Glipizide ER] 2.5 mg PO DAILY 01/24/18 01/24/18 History Your BP and oral diabetes medications have been held for now and your levothyroxine dose is at 50 mg daily per endocrine recommendations. Disposition: TRANSFER ACUTE CARE/OTHER HOSP - Home Medications Comprehensive Discharge Medication List: Ambulatory Orders Cholecalciferol (Vitamin D3) [Vitamin D -] 200 unit PO DAILY 01/22/18 Albuterol 0.083% Nebulizer Meg [Ventolin 0.083% Nebulizer Soln -] 1 amp NEB Q1H PRN amp 01/26/18 Albuterol 2.5/Ipratropium 0.5 [Duoneb -] 1 amp NEB RQID amp 01/26/18 Chlorhexidine Gluconate [Hibiclens For Decolonization -] 1 applic TP HS bottle 01/26/18 Dexamethasone Injection [Decadron Injection -] 10 mg IVPUSH Q8H-IV vial Enoxaparin [Lovenox -] 40 mg SQ DAILY disp.syrin 01/26/18 Guaifenesin/Dextromethorphan [Guaifenesin Dm Syrup] 10 ml PO Q4H PRN cup Insulin Sliding Scale [Novolog Vial Sliding Scale -] 1 vial SQ ACHS units 01/26 Levothyroxine [Synthroid -] 50 mcg PO DAILY@0700 tablet 01/26/18 Mupirocin Ointment [Bactroban Ointment (For Decolonization) -] 1 applic NS BID applic 01/26/18 hydrALAZINE INJECTION [Apresoline Injection -] 10 mg IVPUSH Q6H PRN vial This patient is new to me today: No Emergency Visit: No Critical Care patient: Yes Total Critical Care Time (in minutes): 40 Critical Care Statement: The care of this patient involved high complexity decision making to prevent further life threatening deterioration of the patient 's condition and/or to evaluate & treat vital organ system(s) failure or risk of failure. - Discharge Referral Referred to [facility] No
== END 2018-01-26 08:20 | disposition short-term general hospital (02) | DRG 645 ==
LOC: JER 22:14 → JERBED 01-23 02:31 → JICU 01-23 15:49
PROVIDERS: ADMIT Internal Medicine; ATTEND Hospitalist
DX: E04.8 Other specified nontoxic goiter (principal); R06.03 Acute respiratory distress; G40.909 Epilepsy, unspecified, not intractable, without status epilepticus; I10 Essential (primary) hypertension; I25.10 Atherosclerotic heart disease of native coronary artery without angina pectoris; E03.9 Hypothyroidism, unspecified; J44.9 Chronic obstructive pulmonary disease, unspecified; R06.09 Other forms of dyspnea; J06.9 Acute upper respiratory infection, unspecified; J98.8 Other specified respiratory disorders; D72.828 Other elevated white blood cell count; J98.01 Acute bronchospasm; E11.65 Type 2 diabetes mellitus with hyperglycemia
CPT/HCPCS: 36415; 71045-TC-FY; 71260-TC; 80048; 80053; 81003; 81015; 82550; 82553; 82962; 83036; 83735; 83880; 84100; 84439; 84443; 84481; 84484; 85025; 85610; 86850; 86900; 86901; 93005; 93010; 93971; 94640; 99285-25; J0131; J1100; J7030; J7620